=== PATIENT | male | born 1975 | race Caucasian/White ===

== ENCOUNTER 2016-06-30 09:24 | Emergency (ER) | payer SELFPAY ==
[2016-06-30 09:26] VITALS: BMI 25.0
--- NOTE | 2016-06-30 09:46 | DR.GENAD ---
HPI - PCP Primary Care Physician: NFD - HPI Comment HPI Comment: GETTING WORSE. TOOK ZANTAC WITHOUT RELIEF. HISTORY HEART BURN. PAIN RADIATES TO CHEST AND ABDOMEN. NO FEVER. - Complaint/Symptoms Chief Complaint Doctors Comments: EPIGASTRIC PAIN WITH N/V TIMES 4 DAYS. Chief Complaint:: SEVERE HEARTBURN X 4 DAYS, NO SLEEP, VOMITING - Nurses notes reviewed Nurses Notes Review: Yes - Source History Provided: Patient - Mode of Arrival Mode of Arrival: Ambulatory - Timing Onset of Chief Complaint: 06/26/16 Came on: Suddenly - Duration Duration: Constant Duration: Days - Severity Severity: Moderate PMH - PMH Past Medical History: No Past Surgical History: No Surgical History: No History - Family History History of Family Medical Conditions: Yes Family Medical History: Cancer - Social History Does patient currently use any type of tobacco product: Yes Have you used tobacco products in the last 12 months: Yes Type of Tobacco Use: Cigarettes How many years tobacco product used: 20 Does any household member use tobacco: No Alcohol Use: None Do you use any recreational Drugs:: No Lives With: Significant Other Lives Where: Home - infectious screening In the last 2 months have you had wt loss of >10#?: NO Have you had fever, night sweats or hemotysis?: No Have you traveled outside the country in the last 6 months?: No Isolation: Standard ROS - Review of Systems Constitutional: No Symptoms Reported ENTM: No Symptoms Reported Respiratoy: No Symptoms Reported Cardiovascular: Chest Pain Gastrointestinal/Abdominal: Abdominal Pain Genitourinary: No Symptoms Reported Neurological: No Symptoms Reported Musculoskeletal: No Symptoms Reported Integumentary: No Symptoms Reported Hematologic/Lymphatic: No Symptoms Reported Endocrine: No Symptoms Reported All Other Systems: Reviewed and Negative PE - Vital Signs Vitals: Temperature 98.3 F Pulse Rate 97 Respiratory Rate 24 Blood Pressure [Left Arm] 151/98 Blood Pressure 148/107 O2 Sat by Pulse Oximetry 100 - General Limitations: No Limitations General Appearance: Alert - Head Head Exam: Normal Inspection - Eyes Eye exam: Normal Appearance - ENT ENT Exam: Normal External Ear Exam External Ear Exam: Normal External Inspection TM/Canal Exam: Bilateral Normal Nose Exam: Normal Nose Exam Mouth Exam: Normal Inspection Throat Exam: Normal Inspection - Neck Neck Exam: Normal Inspection - Chest Chest Inspection: Symmetric Chest Wall Rise - Respiratory Respiratory Exam: Normal Lung Sounds Bilat Respiratory Exam: Bilateral Clear to Auscultation - Cardiovascular Cardiovascular Exam: Regular Rate, Normal Rhythm, Normal Heart Sounds - Abdominal Exam Abdominal Exam: Normal Bowel Sounds, Soft, Tenderness Abdominal Tenderness: Epigastrium - Extremities Extremities Exam: Normal Inspection - Back Back Exam: Normal Inspection - Neurologic Neurological Exam: Alert, Oriented X3 - Psychiatric Psychiatric Exam: Normal Affect, Normal Mood - Skin Skin Exam: Normal Color MDM - Additional Information Additional Information Obtained From: Family - Differential Diagnosis Differential Diagnosis: GASTRITIS, ABDOMINAL PAIN, TX, UTI Course - Treatment Treatment: SEE ORDERS - Reevaluation 1st: Improved (WITH IV PEPCID AND GI COCKTAIL.) - Education/Counseling Education/Counseling: Patient, Family, Education Educated On: Treatment, Diagnosis, Needs for Follow Up ROR - Labs Reviewed Laboratory Results Reviewed?: Yes Result Diagrams: 06/30/16 09:59 06/30/16 09:59 Laboratory: WBC 10.6 X10^3/uL (3.6-10.0) H 06/30/16 09:59 RBC 5.31 X10^6/uL (4.7-6.0) 06/30/16 09:59 Hgb 14.9 g/dL (13.5-18.0) 06/30/16 09:59 Hct 44.2 % (42.0-54.0) 06/30/16 09:59 MCV 83.3 fL (80.0-100.0) 06/30/16 09:59 MCH 28.0 pg (27.0-34.0) 06/30/16 09:59 MCHC 33.7 g/dL (33.0-35.0) 06/30/16 09:59 RDW 14.4 % (11.6-16.5) 06/30/16 09:59 Plt Count 94 X10^3/uL (150.0-450.0) L 06/30/16 09:59 MPV 10.0 fL (7.4-11.0) 06/30/16 09:59 Neut % 68.5 % (42.0-75.0) 06/30/16 09:59 Lymph % 18.9 % (21.0-51.0) L 06/30/16 09:59 [place] % 7.4 % (0.0-13.0) 06/30/16 09:59 Eos % 3.7 % (0.9-2.9) H 06/30/16 09:59 Baso % 1.5 % (0.2-1.0) H 06/30/16 09:59 Neut # 7.3 x10^3/uL (2.2-4.8) H 06/30/16 09:59 Lymph # 2.0 X10^3/uL (1.3-2.9) 06/30/16 09:59 [place] # 0.8 x10^3/uL (0.3-0.8) 06/30/16 09:59 Eos # 0.4 x10^3/uL (0.0-0.2) H 06/30/16 09:59 Baso # 0.2 X10^3/uL (0.0-0.1) H 06/30/16 09:59 Absolute Nucleated RBC 0.0 /100WBC 06/30/16 09:59 Sodium 137 mmol/L (136-145) 06/30/16 09:59 Corrected Sodium 138 mmol/L (136-145) 06/30/16 09:59 Potassium 4.0 mmol/L (3.5-5.1) 06/30/16 09:59 Chloride 101 mmol/L (98-107) 06/30/16 09:59 Carbon Dioxide 28.4 mmol/L (21-32) 06/30/16 09:59 BUN 8 mg/dL (7-18) 06/30/16 09:59 Creatinine 0.89 mg/dL (0.70-1.30) 06/30/16 09:59 Est GFR (MDRD) Af Amer > 60 (>60) 06/30/16 09:59 Est GFR (MDRD) Non-Af > 60 (>60) 06/30/16 09:59 Glucose 127 mg/dL (65-99) H 06/30/16 09:59 Calcium 8.6 mg/dL (8.5-10.1) 06/30/16 09:59 Corrected Calcium 9.2 mg/dL (8.5-10.1) 06/30/16 09:59 Total Bilirubin 0.20 mg/dL (0.2-1.0) 06/30/16 09:59 AST 150 Units/L (15-37) H 06/30/16 09:59 ALT 391 Units/L (12-78) H 06/30/16 09:59 Alkaline Phosphatase 178 Units/L (46-116) H 06/30/16 09:59 Creatine Kinase 79 Units/L (39-308) 06/30/16 09:59 CK-MB (CK-2) 1.1 ng/mL (0-4.0) 06/30/16 09:59 CK/CKMB % Calc 1.4 % (<4) 06/30/16 09:59 Troponin I < 0.02 ng/mL (0-1.5) 06/30/16 09:59 Total Protein 6.6 g/dL (6.4-8.2) 06/30/16 09:59 Albumin 3.2 g/dL (3.4-5.0) L 06/30/16 09:59 Globulin 3.4 g/dL (2.5-4.5) 06/30/16 09:59 Albumin/Globulin Ratio 0.9 Ratio (1.1-2.1) L 06/30/16 09:59 Amylase 37 Units/L (25-115) 06/30/16 09:59 Lipase 159 Units/L (73-393) 06/30/16 09:59 Specimen Type Clean catch urine 06/30/16 11:10 Urine Color Yellow (YELLOW) 06/30/16 11:10 Urine Appearance Clear (CLEAR) 06/30/16 11:10 Urine pH 7.0 (5.0 - 8.0) 06/30/16 11:10 Ur Specific [place] 1.005 (1.000-1.030) 06/30/16 11:10 Urine Protein Negative (NEGATIVE) 06/30/16 11:10 Urine Glucose (UA) Negative (NEGATIVE) 06/30/16 11:10 Urine Ketones Negative (NEGATIVE) 06/30/16 11:10 Urine Occult Blood Negative (NEGATIVE) 06/30/16 11:10 Urine Nitrite Negative (NEGATIVE) 06/30/16 11:10 Urine Bilirubin Negative (NEGATIVE) 06/30/16 11:10 Urine Urobilinogen Normal (NORMAL) 06/30/16 11:10 Ur Leukocyte Esterase 1+ (NEGATIVE) 06/30/16 11:10 Urine RBC 0-2 /HPF (NEGATIVE) 06/30/16 11:10 Urine WBC 0-5 /HPF (NEGATIVE) 06/30/16 11:10 Ur Squamous Epith Cells Negative /HPF (NEGATIVE) 06/30/16 11:10 Urine Bacteria Negative /HPF (NEGATIVE) 06/30/16 11:10 Ur Culture Indicated? No/not indicated 06/30/16 11:10 H. pylori IgG Antibody Positive (NEGATIVE) A 06/30/16 09:59 - XRAY XRAY Interpreted by: Radiologist XRAY Findings: REPORT DISCUSS WITH PATIENT. - EKG Rhythm: NSR (EKG NOTED) - Diagnosis Discharge Problem: Epigastric pain, Helicobacter pylori ab+ - Discharge Plan Disposition: HOME, SELF-CARE Condition: Stable Prescriptions: Pantoprazole Sodium 40 mg [Protonix Tab 40 mg] 40 mg PO DAILY #30 tab - Follow ups/Referrals Follow ups/Referrals: NFD,None [Primary Care Provider] - 2 days MAC NARAYAN [STAFF PHYSICIAN] - 2 days - Instructions Instructions: Gastritis, Adult, [id number], Helicobacter Pylori Antibodies Test, Abdominal Pain, Adult, [id number] Additional Instructions: RETURN TO ED IF WORSE. PRIMARY CARE DOCTOR TO TREAT POSITIVE H PYLORI.
[2016-06-30] MEDS ORDERED: PEPCID 20 MG IV PREMIX* 20 MG/50 ML BAG IV ONE ×2 (09:47→09:52)
[2016-06-30] MEDS ORDERED: LEVSIN/MAALOX/LIDOC VISC PO ONE (09:47)
[2016-06-30] MEDS ORDERED: LEVSIN/MAALOX/LIDOC VISC ONE (09:52)
[2016-06-30 10:07] LABS: BASOPHILS # (AUTO) 0.2 X10^3/uL (0.0-0.1); BASOPHILS % (AUTO) 1.5 % (0.2-1.0); EOSINOPHILS # (AUTO) 0.4 x10^3/uL (0.0-0.2); EOSINOPHILS % (AUTO) 3.7 % (0.9-2.9); HEMATOCRIT 44.2 % (42.0-54.0); HEMOGLOBIN 14.9 g/dL (13.5-18.0); LYMPHOCYTES % (AUTO) 18.9 % (21.0-51.0); MEAN CORPUSCULAR HGB CONC 33.7 g/dL (33.0-35.0); MEAN CORPUSCULAR VOLUME 83.3 fL (80.0-100.0); MONOCYTES # (AUTO) 0.8 x10^3/uL (0.3-0.8); MONOCYTES % (AUTO) 7.4 % (0.0-13.0); NEUTROPHILS # (AUTO) 7.3 x10^3/uL (2.2-4.8); NEUTROPHILS % (AUTO) 68.5 % (42.0-75.0); PLATELET COUNT 94 X10^3/uL (150.0-450.0); RED BLOOD COUNT 5.31 X10^6/uL (4.7-6.0); RED CELL DISTRIBUTION WIDTH 14.4 % (11.6-16.5); WHITE BLOOD COUNT 10.6 X10^3/uL (3.6-10.0)
[2016-06-30 10:24] LABS: BLOOD UREA NITROGEN 8 mg/dL (7-18); CALCIUM 8.6 mg/dL (8.5-10.1); CARBON DIOXIDE 28.4 mmol/L (21-32); CHLORIDE 101 mmol/L (98-107); COR NA(FOR HYPERGLY) 138 mmol/L (136-145); CREATININE 0.89 mg/dL (0.70-1.30); GLUCOSE 127 mg/dL (65-99); SODIUM 137 mmol/L (136-145); TROPONIN I < 0.02 ng/mL (0-1.5); eGFR BLACK RACES > 60 (>60); eGFR NON BLACK RACES > 60 (>60)
[2016-06-30 10:29] LABS: ALANINE AMINOTRANSFERASE 391 Units/L (12-78); ALBUMIN 3.2 g/dL (3.4-5.0); ALKALINE PHOSPHATASE 178 Units/L (46-116); ASPARTATE AMINO TRANSFERASE 150 Units/L (15-37); CKMB % 1.4 % (<4); COR CA(FOR HYPOALB) 9.2 mg/dL (8.5-10.1); CREATINE KINASE 79 Units/L (39-308); CREATINE KINASE MB 1.1 ng/mL (0-4.0); TOTAL PROTEIN 6.6 g/dL (6.4-8.2)
[2016-06-30 10:39] LABS: AMYLASE 37 Units/L (25-115); LIPASE 159 Units/L (73-393)
[2016-06-30 11:23] LABS: BILIRUBIN,URINE NEGATIVE (NEGATIVE); BLOOD/HEMOGLOBIN,URINE NEGATIVE (NEGATIVE); GLUCOSE, URINE NEGATIVE (NEGATIVE); KETONES,URINE NEGATIVE (NEGATIVE); LEUKOCYTE ESTERASE ,URINE 1+ (NEGATIVE); NITRITES,URINE NEGATIVE (NEGATIVE); PROTEIN,URINE NEGATIVE (NEGATIVE); UROBILINOGEN,URINE NORMAL (NORMAL)
[2016-06-30 11:29] LABS: APPEARANCE,URINE CLEAR (CLEAR); COLOR,URINE YELLOW (YELLOW); RBC,URINE 0-2 /HPF (NEGATIVE); SQUAMOUS EPITHELIAL CELL,UR NEGATIVE /HPF (NEGATIVE)
[2016-06-30 11:30] LABS: BACTERIA,URINE NEGATIVE /HPF (NEGATIVE)
--- NOTE | 2016-06-30 11:57 | RAD ---
HISTORY: Chest and abdominal pain. Acute abdominal series. Findings: The trachea is midline. The cardiac silhouette is unremarkable. The lungs are clear without focal infiltrate or effusion. The bony thorax is unremarkable. Flat plate and upright evaluation of the abdomen demonstrates a nonspecific and nonobstructive bowel gas pattern. No free peritoneal air is seen. No pathological soft tissue abdominal mass effect or f ocal calcification can be observed. The bony structures are grossly intact. IMPRESSION: 1. No acute cardiopulmonary disease. 2. No evidence for acute abdominal pathology. 3. Large quantity of colonic stool observed. Reported By:
[2016-06-30 22:09] VITALS: BP 134/93
[2016-06-30] MEDS ORDERED: ZOFRAN INJ 4 MG VIAL IVP ONE (23:14)
[2016-06-30] MEDS ORDERED: DEMEROL INJ IVP ONE (23:14)
[2016-06-30] MEDS ORDERED: ZOFRAN INJ 4 MG VIAL ONE (23:19)
[2016-06-30] MEDS ORDERED: DEMEROL INJ ONE (23:20)
[2016-07-01] MEDS ORDERED: NS 100 ML IV 100 ML IV ONE (00:30)
--- NOTE | 2016-07-01 01:41 | CT ---
EXAM: CT ABDOMEN AND PELVIS WITH CONTRAST INDICATION: Severe heartburn, abdominal pain COMPARISION: No priors available for comparison TECHNIQUE: Axial CT examination of the abdomen and pelvis was performed with intravenous contrast. The patient received intravenous contrast without adverse reaction. Coronal and sagittal reconstructions were c reated using the axial data. FINDINGS: The lung bases are clear. The liver, spleen, pancreas, adrenal glands, kidneys, and gallbladder are normal. There is no evidence of biliary ductal dilatation. The aorta and inferior vena cava are norm al in caliber. The bowel loops are nonobstructed. No abnormal mass, lymphadenopathy, or fluid collection. Urinary bladder is normal. The appendix is normal. The regional skeleton is intact. IMPRESSION: Normal CT examination of the abdomen and pelvis. Reported By:
== END 2016-07-01 02:14 | disposition home or self-care (01) ==
LOC: ER 09:24
DX: R10.13 Epigastric pain (principal); B96.81 Helicobacter pylori [H. pylori] as the cause of diseases classified elsewhere
CPT/HCPCS: 36415; 74022; 74177; 80053; 81001; 82150; 82550; 82553; 83690; 84484; 85025; 86677; 93005; 93010; 96365; 96367; 96374; 96375; 99283; 99284; A4222; S0028; J2175; J2405

== ENCOUNTER 2016-09-01 05:03 | Emergency (ER) | payer SELFPAY ==
[2016-09-01 05:09] VITALS: BP 135/81; BMI 26.4
--- NOTE | 2016-09-01 05:18 | DR.GENAD ---
HPI - PCP Primary Care Physician: craft - Complaint/Symptoms Chief Complaint:: vomiting since 0100 pt states" they said i had H-pylori last month i don't thinks its gone" - Nurses notes reviewed Nurses Notes Review: Yes - Source History Provided: Patient - Mode of Arrival Mode of Arrival: Ambulatory - Timing Onset of Chief Complaint: 09/01/16 Came on: Gradually - Duration Duration: Intermittent How lon Duration: Hours - Location Location: stomach - Severity Severity: Mild - Modifying Factors Worsens:: food - Associated Signs and Symptoms Associated Signs and Symptoms: heartburn PMH - PMH Past Medical History: No Past Surgical History: No Surgical History: No History - Family History History of Family Medical Conditions: Yes Family Medical History: Cancer - Social History Alcohol Use: None Do you use any recreational Drugs:: No Lives With: Family Lives Where: Home - infectious screening In the last 2 months have you had wt loss of >10#?: NO Have you had fever, night sweats or hemotysis?: No Have you traveled outside the country in the last 6 months?: No Isolation: Standard ROS - Review of Systems Constitutional: No Symptoms Reported Eyes: No Symptoms Reported ENTM: No Symptoms Reported Respiratoy: No Symptoms Reported Cardiovascular: No Symptoms Reported Gastrointestinal/Abdominal: Nausea, Vomiting Genitourinary: No Symptoms Reported Neurological: No Symptoms Reported Musculoskeletal: No Symptoms Reported Integumentary: No Symptoms Reported Hematologic/Lymphatic: No Symptoms Reported Endocrine: No Symptoms Reported Psychiatric: No Symptoms Reported All Other Systems: Reviewed and Negative PE - Vital Signs Vitals: Temperature 98.6 F Pulse Rate 88 Respiratory Rate 18 Blood Pressure [Left Arm] 151/98 Blood Pressure 135/81 O2 Sat by Pulse Oximetry 97 - General Limitations: No Limitations General Appearance: Alert, In No Apparent Distress - Head Head Exam: Normal Inspection - Eyes Eye exam: Normal Appearance, EOMI. negative: Scleral Icterus, Conjunctival Injection - ENT ENT Exam: Normal Exam External Ear Exam: Normal External Inspection Mouth Exam: Normal Inspection - Neck Neck Exam: Normal Inspection, Full ROM, Trachea Midline - Chest Chest Inspection: Normal Inspection - Respiratory Respiratory Exam: Normal Lung Sounds Bilat. negative: Accessory Muscle Use, Respiratory Distress Respiratory Exam: Bilateral Clear to Auscultation - Cardiovascular Cardiovascular Exam: Regular Rate - Abdominal Exam Abdominal Exam: Normal Bowel Sounds, Soft. negative: Distention, Tenderness, Guarding Abdominal Tenderness: Epigastrium - Extremities Extremities Exam: Normal Inspection, Full ROM - Back Back Exam: Normal Inspection, Full ROM - Neurologic Neurological Exam: Alert, Oriented X3, CN II-XII Intact - Psychiatric Psychiatric Exam: Normal Affect, Normal Mood - Skin Skin Exam: Intact, Normal Color Course - Treatment Treatment: no vomiting after zofran. - Diagnosis Discharge Problem: Vomiting Qualifiers: Vomiting type: unspecified Vomiting Intractability: non-intractable Nausea presence: with nausea Qualified Code(s): R11.2 - Nausea with vomiting, unspecified - Discharge Plan Condition: Stable - Follow ups/Referrals Follow ups/Referrals: NFD,None [Primary Care Provider] - 3 days - Instructions
[2016-09-01] MEDS ORDERED: ZOFRAN INJ 4 MG VIAL IM ONE (05:21)
[2016-09-01] MEDS ORDERED: ZOFRAN INJ 4 MG VIAL ONE (05:23)
[2016-09-01] MEDS ORDERED: LEVSIN/MAALOX/LIDOC VISC PO ONE (05:24)
[2016-09-01] MEDS ORDERED: LEVSIN/MAALOX/LIDOC VISC ONE (05:26)
== END 2016-09-01 06:50 | disposition home or self-care (01) ==
LOC: ER 05:03
DX: R11.2 Nausea with vomiting, unspecified (principal)
CPT/HCPCS: 96372; 99282; J2405

== ENCOUNTER 2016-10-25 15:21 | Emergency (ER) | payer SELFPAY ==
[2016-10-25 15:26] VITALS: BP 122/81; BMI 25.0
--- NOTE | 2016-10-25 15:48 | DR.GENAD ---
HPI - PCP Primary Care Physician: NFD - Complaint/Symptoms Chief Complaint Doctors Comments: patient denies any trauma Chief Complaint:: PATIENT C/O FOOT RIGHT SWOLLEN AND RED. PATIENT STATED THAT THIS HAS BEEN GOING ON SINCE YESTERDAY. - Source History Provided: Patient - Mode of Arrival Mode of Arrival: Ambulatory - Timing Onset of Chief Complaint: 10/23/16 PMH - PMH Past Medical History: No Past Surgical History: No Surgical History: No History - Family History History of Family Medical Conditions: Yes Family Medical History: Cancer - Social History Does patient currently use any type of tobacco product: Yes Have you used tobacco products in the last 12 months: Yes Type of Tobacco Use: Cigarettes Does any household member use tobacco: No Alcohol Use: None Do you use any recreational Drugs:: No Lives With: Family Lives Where: Home - infectious screening In the last 2 months have you had wt loss of >10#?: NO Have you had fever, night sweats or hemotysis?: No Have you traveled outside the country in the last 6 months?: No Isolation: Standard ROS - Review of Systems Eyes: No Symptoms Reported ENTM: No Symptoms Reported Respiratoy: No Symptoms Reported Cardiovascular: No Symptoms Reported Gastrointestinal/Abdominal: No Symptoms Reported Genitourinary: No Symptoms Reported Neurological: No Symptoms Reported Musculoskeletal: No Symptoms Reported Integumentary: Change in Color, Lesions (punctum dorsum of foot, area of erythema) Hematologic/Lymphatic: No Symptoms Reported Endocrine: No Symptoms Reported Psychiatric: No Symptoms Reported All Other Systems: Reviewed and Negative PE - Vital Signs Vitals: Temperature 98.1 F Pulse Rate 83 Respiratory Rate 20 Blood Pressure [Left Arm] 151/98 Blood Pressure 122/81 O2 Sat by Pulse Oximetry 97 - General General Appearance: Alert, In No Apparent Distress - Head Head Exam: Normal Inspection, Atraumatic - Eyes Eye exam: Normal Appearance - ENT ENT Exam: Normal Exam External Ear Exam: Normal External Inspection TM/Canal Exam: Bilateral Normal Nose Exam: Normal Nose Exam Mouth Exam: Normal Inspection Throat Exam: Normal Inspection - Neck Neck Exam: Normal Inspection - Chest Chest Inspection: Normal Inspection - Respiratory Respiratory Exam: Normal Lung Sounds Bilat Respiratory Exam: Bilateral Clear to Auscultation - Cardiovascular Cardiovascular Exam: Regular Rate, Normal Rhythm - Abdominal Exam Abdominal Exam: Normal Inspection - Extremities Extremities Exam: Normal Inspection, Full ROM - Back Back Exam: Normal Inspection - Neurologic Neurological Exam: Alert, Oriented X3, CN II-XII Intact - Psychiatric Psychiatric Exam: Normal Affect, Normal Mood - Skin Skin Exam: Warm, Dry, Erythema (Punctums x 2 on dorsum of toes) Course - Treatment Treatment: clindamycin 600mg IN - Reevaluation 1st: Improved ROR - Labs Reviewed Result Diagrams: 10/25/16 15:57 10/25/16 15:57 Laboratory: WBC 11.7 X10^3/uL (3.6-10.0) H 10/25/16 15:57 RBC 5.05 X10^6/uL (4.7-6.0) 10/25/16 15:57 Hgb 14.0 g/dL (13.5-18.0) 10/25/16 15:57 Hct 42.0 % (42.0-54.0) 10/25/16 15:57 MCV 83.2 fL (80.0-100.0) 10/25/16 15:57 MCH 27.8 pg (27.0-34.0) 10/25/16 15:57 MCHC 33.4 g/dL (33.0-35.0) 10/25/16 15:57 RDW 14.7 % (11.6-16.5) 10/25/16 15:57 Plt Count 120 X10^3/uL (150.0-450.0) L 10/25/16 15:57 MPV 10.1 fL (7.4-11.0) 10/25/16 15:57 Neut % 78.4 % (42.0-75.0) H 10/25/16 15:57 Lymph % 11.0 % (21.0-51.0) L 10/25/16 15:57 [place] % 8.9 % (0.0-13.0) 10/25/16 15:57 Eos % 1.1 % (0.9-2.9) 10/25/16 15:57 Baso % 0.6 % (0.2-1.0) 10/25/16 15:57 Neut # 9.2 x10^3/uL (2.2-4.8) H 10/25/16 15:57 Lymph # 1.3 X10^3/uL (1.3-2.9) 10/25/16 15:57 [place] # 1.0 x10^3/uL (0.3-0.8) H 10/25/16 15:57 Eos # 0.1 x10^3/uL (0.0-0.2) 10/25/16 15:57 Baso # 0.1 X10^3/uL (0.0-0.1) 10/25/16 15:57 Absolute Nucleated RBC 0.0 /100WBC 10/25/16 15:57 Sodium 138 mmol/L (136-145) 10/25/16 15:57 Corrected Sodium TNP 10/25/16 15:57 Potassium 3.4 mmol/L (3.5-5.1) L 10/25/16 15:57 Chloride 104 mmol/L (98-107) 10/25/16 15:57 Carbon Dioxide 25.4 mmol/L (21-32) 10/25/16 15:57 BUN 16 mg/dL (7-18) 10/25/16 15:57 Creatinine 0.84 mg/dL (0.70-1.30) 10/25/16 15:57 Est GFR (MDRD) Af Amer > 60 (>60) 10/25/16 15:57 Est GFR (MDRD) Non-Af > 60 (>60) 10/25/16 15:57 Glucose 102 mg/dL (65-99) H 10/25/16 15:57 Calcium 8.1 mg/dL (8.5-10.1) L 10/25/16 15:57 C-Reactive Protein 38.60 mg/L (0-3.0) H 10/25/16 15:57 - Diagnosis Discharge Problem: Cellulitis and abscess of foot - Discharge Plan Condition: Stable - Follow ups/Referrals Follow ups/Referrals: NFD,None [Primary Care Provider] - 3 days - Instructions
[2016-10-25] MEDS ORDERED: CLEOCIN 600 MG IV PREMIX 600 MG/50 ML BAG IV ONE (15:51)
[2016-10-25] MEDS ORDERED: TORADOL 30 MG VIAL IVP ONE (15:52)
[2016-10-25] MEDS ORDERED: TORADOL 30 MG VIAL ONE (15:53)
[2016-10-25] MEDS ORDERED: NS 250 ML IV 250 ML IV ONE (16:04)
[2016-10-25] MEDS ORDERED: CLEOCIN VIAL 600 MG ONE (16:04)
[2016-10-25 16:19] LABS: BASOPHILS # (AUTO) 0.1 X10^3/uL (0.0-0.1); BASOPHILS % (AUTO) 0.6 % (0.2-1.0); EOSINOPHILS # (AUTO) 0.1 x10^3/uL (0.0-0.2); EOSINOPHILS % (AUTO) 1.1 % (0.9-2.9); LYMPHOCYTES # (AUTO) 1.3 X10^3/uL (1.3-2.9); MEAN CORPUSCULAR HEMOGLOBIN 27.8 pg (27.0-34.0); MEAN CORPUSCULAR HGB CONC 33.4 g/dL (33.0-35.0); MEAN CORPUSCULAR VOLUME 83.2 fL (80.0-100.0); MEAN PLATELET VOLUME 10.1 fL (7.4-11.0); MONOCYTES % (AUTO) 8.9 % (0.0-13.0); NEUTROPHILS # (AUTO) 9.2 x10^3/uL (2.2-4.8); NEUTROPHILS % (AUTO) 78.4 % (42.0-75.0); PLATELET COUNT 120 X10^3/uL (150.0-450.0); RED BLOOD COUNT 5.05 X10^6/uL (4.7-6.0); RED CELL DISTRIBUTION WIDTH 14.7 % (11.6-16.5); WHITE BLOOD COUNT 11.7 X10^3/uL (3.6-10.0)
[2016-10-25 16:22] LABS: BLOOD UREA NITROGEN 16 mg/dL (7-18); CALCIUM 8.1 mg/dL (8.5-10.1); CARBON DIOXIDE 25.4 mmol/L (21-32); CHLORIDE 104 mmol/L (98-107); CREATININE 0.84 mg/dL (0.70-1.30); GLUCOSE 102 mg/dL (65-99); SODIUM 138 mmol/L (136-145); eGFR BLACK RACES > 60 (>60); eGFR NON BLACK RACES > 60 (>60)
[2016-10-25] MEDS ORDERED: POTASSIUM CHLORIDE LIQ 20 MEQ UDC ONE (16:52)
[2016-10-25] MEDS ORDERED: POTASSIUM CHLORIDE LIQ 20 MEQ UDC PO SCH (17:00)
== END 2016-10-25 17:02 | disposition home or self-care (01) ==
LOC: ER 15:36
DX: L03.115 Cellulitis of right lower limb (principal)
CPT/HCPCS: 36415; 80048; 85025; 86140; 87040; 96365; 96374; 96375; 99282; 99283; A4222; J1885; S0077

== ENCOUNTER 2016-10-27 10:53 | Inpatient (IN) | payer SELFPAY ==
[2016-10-27 10:58] VITALS: BMI 25.0
--- NOTE | 2016-10-27 11:25 | DR.EXTPAIN ---
HPI - Time seen Time seen: 11:25 - PCP Primary Care Physician: NFD - Complaint/Symptoms Chief Complaint Doctor Comments: Patient was treated for cellulitis of the right foot on the , medicated with Bactrim DS po as out patient; given IV clindymycin in the ED; he presents today with more swelling and erythema of the dorsum of the foot. The culture is no growth to date. Patient additionally reports that he had taken some antibiotics (for tooth abscess) prior to being seen in the ED. Chief Complaint:: PT. C/O RIGHT FOOT PAIN, SWELLING, REDNESS WHICH BEGAN ON TUESDAY. PT. WAS SEEN IN THE ER ON TUESDAY AND WAS GIVEN IV ANTIBITOICS AND ORAL ANTIBIOTICS TO TAKE AT HOME. - Source History Provided: Patient - Mode of arrival Mode of Arrival: Ambulatory - Timing Onset of Chief Complaint: 10/25/16 PMH - PMH Past Medical History: No Past Surgical History: No Surgical History: No History - Family History History of Family Medical Conditions: Yes Family Medical History: Cancer - Social History Does patient currently use any type of tobacco product: Yes Have you used tobacco products in the last 12 months: Yes Type of Tobacco Use: Cigarettes Does any household member use tobacco: No Alcohol Use: None Do you use any recreational Drugs:: No Lives With: Spouse Lives Where: Home - infectious screening In the last 2 months have you had wt loss of >10#?: NO Have you had fever, night sweats or hemotysis?: No Have you traveled outside the country in the last 6 months?: No Isolation: Standard ROS - Review of Systems Eyes: No Symptoms Reported ENTM: No Symptoms Reported Respiratoy: No Symptoms Reported Cardiovascular: No Symptoms Reported Gastrointestinal/Abdominal: No Symptoms Reported Genitourinary: No Symptoms Reported Neurological: No Symptoms Reported Musculoskeletal: Foot (right foot edematous and erythematous dorsum of foot) PE - Vital Signs Vitals: Temperature 98.1 F Pulse Rate 96 Respiratory Rate 20 Blood Pressure [Left Arm] 151/98 Blood Pressure 166/84 O2 Sat by Pulse Oximetry 98 - General General Appearance: Alert, In No Apparent Distress - Head Head Exam: Normal Inspection, Atraumatic - Eyes Eye exam: Normal Appearance, PERRL, EOMI - ENT ENT Exam: Normal Exam - Neck Neck Exam: Normal Inspection, Full ROM - Chest Chest Inspection: Normal Inspection - Respiratory Respiratory Exam: Normal Lung Sounds Bilat Respiratory Exam: Bilateral Clear to Auscultation - Cardiovascular Cardiovascular Exam: Regular Rate - Abdominal Exam Abdominal Exam: Normal Inspection Abdominal Tenderness: negative: RUQ, RLQ, LUQ, LLQ, Epigastrium, Suprapubic, Diffuse, Mild, Moderate, Severe, Other - Extremities Extremities Exam: Tenderness (left foot), Edema, Joint Swelling, Other ( erythematous) - Upper Extremities Shoulder Exam: Normal Inspection Arm Exam: Normal Inspection Elbow Exam: Normal Inspection Forearm Exam: Normal Inspection Hand Exam: Normal Inspection Neuromotor Exam: Normal Exam Neurosensory Exam: Normal Exam Hand Tendon Exam: Flexor Digitorium Profundus (Location) Upper Ext. Vascular Exam: Capillary Refill - Lower Extremities Hip/Pelvis Exam: Normal Inspection Upper Leg Exam: Normal Inspection Knee Exam: Normal Inspection Lower Leg Exam: Normal Inspection Ankle Exam: Normal Inspection, Swelling Foot/Toe Exam: Tenderness, Swelling, Erythema (right dorsum of foot) Neurovascular/Tendon Exam: Normal Capillary Refill Gait Exam: Antalgic - Back Back Exam: Muscle Spasm - Neurological Neurological Exam: Alert, Oriented X3, CN II-XII Intact Course - Reevaluation 1st: Unchanged - Consultation Called: 12:40 (Dr Mehta agreed to accept for treatment of osteomyelitis) ROR - Labs Reviewed Result Diagrams: 10/27/16 11:30 10/27/16 11:30 Laboratory: WBC 12.7 X10^3/uL (3.6-10.0) H 10/27/16 11:30 RBC 4.81 X10^6/uL (4.7-6.0) 10/27/16 11:30 Hgb 13.4 g/dL (13.5-18.0) L 10/27/16 11:30 Hct 39.7 % (42.0-54.0) L 10/27/16 11:30 MCV 82.5 fL (80.0-100.0) 10/27/16 11:30 MCH 27.8 pg (27.0-34.0) 10/27/16 11:30 MCHC 33.7 g/dL (33.0-35.0) 10/27/16 11:30 RDW 14.5 % (11.6-16.5) 10/27/16 11:30 Plt Count 132 X10^3/uL (150.0-450.0) L 10/27/16 11:30 MPV 9.9 fL (7.4-11.0) 10/27/16 11:30 Neut % 75.9 % (42.0-75.0) H 10/27/16 11:30 Lymph % 14.9 % (21.0-51.0) L 10/27/16 11:30 [place] % 7.1 % (0.0-13.0) 10/27/16 11:30 Eos % 1.2 % (0.9-2.9) 10/27/16 11:30 Baso % 0.9 % (0.2-1.0) 10/27/16 11:30 Neut # 9.6 x10^3/uL (2.2-4.8) H 10/27/16 11:30 Lymph # 1.9 X10^3/uL (1.3-2.9) 10/27/16 11:30 [place] # 0.9 x10^3/uL (0.3-0.8) H 10/27/16 11:30 Eos # 0.2 x10^3/uL (0.0-0.2) 10/27/16 11:30 Baso # 0.1 X10^3/uL (0.0-0.1) 10/27/16 11:30 Absolute Nucleated RBC 0.0 /100WBC 10/27/16 11:30 Sodium 136 mmol/L (136-145) 10/27/16 11:30 Corrected Sodium TNP 10/27/16 11:30 Potassium 3.3 mmol/L (3.5-5.1) L 10/27/16 11:30 Chloride 100 mmol/L (98-107) 10/27/16 11:30 Carbon Dioxide 28.4 mmol/L (21-32) 10/27/16 11:30 BUN 14 mg/dL (7-18) 10/27/16 11:30 Creatinine 1.02 mg/dL (0.70-1.30) 10/27/16 11:30 Est GFR (MDRD) Af Amer > 60 (>60) 10/27/16 11:30 Est GFR (MDRD) Non-Af > 60 (>60) 10/27/16 11:30 Glucose 104 mg/dL (65-99) H 10/27/16 11:30 Calcium 8.8 mg/dL (8.5-10.1) 10/27/16 11:30 Corrected Calcium TNP 10/27/16 11:30 Total Bilirubin 0.40 mg/dL (0.2-1.0) 10/27/16 11:30 AST 15 Units/L (15-37) 10/27/16 11:30 ALT 22 Units/L (12-78) 10/27/16 11:30 Alkaline Phosphatase 102 Units/L (46-116) 10/27/16 11:30 C-Reactive Protein 34.20 mg/L (0-3.0) H 10/27/16 11:30 Total Protein 7.1 g/dL (6.4-8.2) 10/27/16 11:30 Albumin 3.4 g/dL (3.4-5.0) 10/27/16 11:30 Globulin 3.7 g/dL (2.5-4.5) 10/27/16 11:30 Albumin/Globulin Ratio 0.9 Ratio (1.1-2.1) L 10/27/16 11:30 - XRAY XRAY Interpreted by: Radiologist (Right foot: Diffuse subcutaneous and cutaneous soft tissue swelling consistent with cellulitis...no evidence for [id number] or subcutaneous gas. No definite bony abnormality. There are no findings suggestive of osteomyelitis howerer non contrast CT is not adequate evaluation for osteomyelitis however MRI of foot with and without contrast would be required for further evaluation) - Diagnosis Discharge Problem: Foot osteomyelitis, right Qualifiers: Osteomyelitis type: subacute Qualified Code(s): M86.271 - Subacute osteomyelitis, right ankle and foot - Discharge Plan Condition: Stable - Follow ups/Referrals Follow ups/Referrals: NFD,None [Primary Care Provider] - 3 days - Instructions
[2016-10-27] MEDS ORDERED: MORPHINE SULFATE INJ 4 MG IVP ONE (11:30)
[2016-10-27] MEDS ORDERED: MORPHINE SULFATE INJ 4 MG ONE (11:32)
[2016-10-27 11:47] LABS: BASOPHILS # (AUTO) 0.1 X10^3/uL (0.0-0.1); BASOPHILS % (AUTO) 0.9 % (0.2-1.0); EOSINOPHILS # (AUTO) 0.2 x10^3/uL (0.0-0.2); EOSINOPHILS % (AUTO) 1.2 % (0.9-2.9); HEMATOCRIT 39.7 % (42.0-54.0); HEMOGLOBIN 13.4 g/dL (13.5-18.0); LYMPHOCYTES # (AUTO) 1.9 X10^3/uL (1.3-2.9); LYMPHOCYTES % (AUTO) 14.9 % (21.0-51.0); MEAN CORPUSCULAR HEMOGLOBIN 27.8 pg (27.0-34.0); MEAN CORPUSCULAR HGB CONC 33.7 g/dL (33.0-35.0); MEAN CORPUSCULAR VOLUME 82.5 fL (80.0-100.0); MEAN PLATELET VOLUME 9.9 fL (7.4-11.0); MONOCYTES # (AUTO) 0.9 x10^3/uL (0.3-0.8); MONOCYTES % (AUTO) 7.1 % (0.0-13.0); NEUTROPHILS # (AUTO) 9.6 x10^3/uL (2.2-4.8); NEUTROPHILS % (AUTO) 75.9 % (42.0-75.0); PLATELET COUNT 132 X10^3/uL (150.0-450.0); RED BLOOD COUNT 4.81 X10^6/uL (4.7-6.0); RED CELL DISTRIBUTION WIDTH 14.5 % (11.6-16.5); WHITE BLOOD COUNT 12.7 X10^3/uL (3.6-10.0)
[2016-10-27 11:53] LABS: ALANINE AMINOTRANSFERASE 22 Units/L (12-78); ALBUMIN 3.4 g/dL (3.4-5.0); ALKALINE PHOSPHATASE 102 Units/L (46-116); ASPARTATE AMINO TRANSFERASE 15 Units/L (15-37); BLOOD UREA NITROGEN 14 mg/dL (7-18); CALCIUM 8.8 mg/dL (8.5-10.1); CARBON DIOXIDE 28.4 mmol/L (21-32); CHLORIDE 100 mmol/L (98-107); CREATININE 1.02 mg/dL (0.70-1.30); GLUCOSE 104 mg/dL (65-99); SODIUM 136 mmol/L (136-145); TOTAL PROTEIN 7.1 g/dL (6.4-8.2); eGFR BLACK RACES > 60 (>60); eGFR NON BLACK RACES > 60 (>60)
[2016-10-27] MEDS ORDERED: POTASSIUM CHLORIDE LIQ 20 MEQ UDC PO ONE (12:13)
[2016-10-27] MEDS ORDERED: POTASSIUM CHLORIDE LIQ 20 MEQ UDC ONE (12:16)
--- NOTE | 2016-10-27 12:43 | CT ---
HISTORY: Cellulitis right foot Study: CT right foot without contrast Comparison: None Technique: Axial non contrast images with coronal and sagittal reformats. Dose reduction procedures were use with MA/kv adjusted for body size. This examination is limited due to the lack of intraveno us contrast. Findings: There is diffuse subcutaneous and subcutaneous edema involving the area of the ankle and foot. There are no discrete visible drainable fluid collections however evaluation for abscess is limited due t o the lack of intravenous contrast. The distal tibia, distal fibula, and tibiotalar joints are intac t as are the talus, calcaneus, and subtalar joints. There is no evidence for fracture, lytic, or dorothy stic lesion. No erosive arthritis is identified. There is no abnormal periosteal reaction or soft ti ssue gas identified. Non contrast CT is not an adequate evaluation for osteomyelitis. If osteomyelit is is a clinical consideration MRI of the foot with and without contrast would be required. IMPRESSION: Diffuse subcutaneous and cutaneous soft tissue swelling consistent with cellulitis. The lack of intr avenous contrast limits the evaluation for subcutaneous abscess. No evidence for cutaneous or subcutaneous gas No definite bony abnormality. There are no findings suggestive of osteomyelitis however non contrast CT is not adequate evaluation for osteomyelitis and if osteomyelitis is a strong clinical considera tion MRI of the foot with and without contrast would be required for further evaluation. Reported By:
[2016-10-27] MEDS ORDERED: MOTRIN TAB 600 MG PO PRN (13:33)
[2016-10-27] MEDS ORDERED: TORADOL 30 MG VIAL IVP ONE (13:37)
[2016-10-27] MEDS ORDERED: NS 1000 ML 1,000 ML ONE (13:54)
[2016-10-27] MEDS ORDERED: VANCOMYCIN HCL 500 MG VIAL ONE (13:55)
[2016-10-27] MEDS ORDERED: NS 100 ML IV + SPIKE MINIBAG* 100 ML IV ONE (13:55)
[2016-10-27] MEDS ORDERED: TORADOL 30 MG VIAL ONE (13:58)
[2016-10-27] MEDS ORDERED: D5 NS 1000 ML 1,000 ML IV SCH (14:00)
[2016-10-27] MEDS: VANCOMYCIN HCL 500 MG VIAL 500 MG in D5W 100 ML IV 100 ML IV SCH ×2 (14:01→21:08)
[2016-10-27] MEDS: NS 1000 ML 1,000 ML IV SCH ×2 (14:04→22:21)
[2016-10-27] MEDS ORDERED: PREVNAR 13 IM ONE (14:26)
[2016-10-27] MEDS: NICODERM PATCH 21 MG/24 HR TD SCH (16:43)
[2016-10-27] MEDS: NORCO 5/325 MG TAB PO PRN ×2 (16:44→22:20)
[2016-10-27] MEDS ORDERED: MOTRIN TAB 800 MG PO PRN (20:41)
[2016-10-27] MEDS: MAALOX or MYLANTA PO PRN (21:03)
[2016-10-27] MEDS: PHENERGAN TAB 25 MG PO PRN (21:08)
[2016-10-27] MEDS: CHECK PATCH XX SCH (21:16)
[2016-10-28] MEDS: MAALOX or MYLANTA PO PRN ×2 (01:47→13:20)
[2016-10-28] MEDS: PHENERGAN TAB 25 MG PO PRN ×2 (02:44→20:13)
[2016-10-28] MEDS ORDERED: K-DUR TAB 20 MEQ PO PRN (04:56)
[2016-10-28] MEDS ORDERED: K-LYTE EFFERVESCENT PO PRN (04:56)
[2016-10-28] MEDS ORDERED: K-RIDER 10 MEQ/NS 100 ML 10 MEQ/100 ML BAG IV PRN (04:56)
[2016-10-28] MEDS ORDERED: POTASSIUM CHLORIDE LIQ 20 MEQ UDC PO PRN (04:56)
[2016-10-28 05:16] LABS: BASOPHILS % (AUTO) 0.5 % (0.2-1.0); EOSINOPHILS # (AUTO) 0.3 x10^3/uL (0.0-0.2); EOSINOPHILS % (AUTO) 4.3 % (0.9-2.9); HEMOGLOBIN 12.9 g/dL (13.5-18.0); LYMPHOCYTES # (AUTO) 1.9 X10^3/uL (1.3-2.9); LYMPHOCYTES % (AUTO) 26.4 % (21.0-51.0); MEAN CORPUSCULAR HEMOGLOBIN 28.2 pg (27.0-34.0); MEAN CORPUSCULAR VOLUME 82.8 fL (80.0-100.0); MEAN PLATELET VOLUME 9.8 fL (7.4-11.0); MONOCYTES # (AUTO) 0.6 x10^3/uL (0.3-0.8); MONOCYTES % (AUTO) 7.9 % (0.0-13.0); NEUTROPHILS # (AUTO) 4.3 x10^3/uL (2.2-4.8); NEUTROPHILS % (AUTO) 60.9 % (42.0-75.0); PLATELET COUNT 139 X10^3/uL (150.0-450.0); RED BLOOD COUNT 4.59 X10^6/uL (4.7-6.0)
[2016-10-28] MEDS: NORCO 5/325 MG TAB PO PRN ×3 (05:27→20:12)
[2016-10-28] MEDS: NS 1000 ML 1,000 ML IV SCH ×3 (07:32→23:41)
[2016-10-28] MEDS: VANCOMYCIN HCL 500 MG VIAL 500 MG in D5W 100 ML IV 100 ML IV SCH ×2 (09:51→20:13)
[2016-10-28] MEDS: NICODERM PATCH 21 MG/24 HR TD SCH (09:52)
[2016-10-28] MEDS: CHECK PATCH XX SCH (10:16)
--- NOTE | 2016-10-28 18:40 | DR.H&P ---
H&P - History & Physical for Day of: H&P Date: 10/27/16 - Chief Complaint Chief Complaint: RIGHT FOOT PAIN, SWELLING, REDNESS WHICH BEGAN ON TUESDAY. PT. WAS SEEN IN THE ER ON TUESDAY AND WAS GIVEN IV ANTIBITOICS AND ORAL ANTIBIOTICS TO TAKE AT HOME. - Allergies Allergies/Adverse Reactions: Allergies Allergy/AdvReac Type Severity Reaction Status Date / Time No Known Drug Allergies Allergy Verified 10/27/16 10:58 - History of Present Illness History of Present Illness: patient is a 41-year-old white male who was admitted from the emergency room after presenting with right lower extremity cellulitis. Patient was seen prior in the ER and started on by mouth antibiotics without improvement. Patient had a CT of the lower extremity to rule out osteomyelitis. Patient was started on vancomycin and admitted for further evaluation of cellulitis. Planned repeat a.m. labs and continue pain control - Past Medical History Past Medical History: denies: Diabetes, GERD, Hypertension - Past Surgical History Surgical History: No History - Family History Family Medical History: Cancer, MS, Coronary Artery Disease, Hypertension - Social History Does patient currently use any type of tobacco product: Yes Have you used tobacco products in the last 12 months: Yes Type of Tobacco Use: Cigarettes How many years tobacco product used: 22 Does any household member use tobacco: Yes Alcohol Use: None Drug Use: None - Review of Systems Constitutional: Fever, Chills Eyes: No Symptoms Reported ENT: No Symptoms Reported Respiratory: No Symptoms Reported Cardiovascular: No Symptoms Reported Gastrointestinal: No Symptoms Reported Genitourinary: No Symptoms Reported Musculoskeletal: Leg Pain, Foot Pain Skin: Other (redness increased warmth and swelling to right lower extremity) Neurological: No Symptoms Reported - Physical Exam Vital Signs: Temperature 97.7 F Pulse Rate [Left Brachial] 78 Pulse Rate [Right Radial] 91 Respiratory Rate 20 Blood Pressure [Left Arm] 120/67 O2 Sat by Pulse Oximetry 96 Oriented: Normal Eyes: Normal Ear: Normal Nose: Normal Throat: Normal Respiratory: Clear Throughout Cardiovascular: Normal : Normal Auscultation: Bowel Sounds: Normal Palpation: Normal Tenderness: Normal Skin: Red (right lower extremity), Tender, Hot Musculoskeletal: Right, Leg, Ankle, Foot, Swelling, Tender Psychiatric: Normal Speech Pattern: Clear - Assessment/Plan (1) Cellulitis and abscess of foot Status: Acute Plan: IV antibiotics, blood cultures, CBC and CMP on admission, CT of extremity in aVR, see report. Repeat a.m. labs
--- NOTE | 2016-10-28 18:41 | PCM.PROG ---
Progress Note - Progress Note for Day of Date: 10/28/16 - Subjective Subjective: Patient is a 41-year-old white male who was admitted one day ago from the emergency room for cellulitis of the right foot and ankle. Patient's white count improved to 7 this a.m. Continued redness and swelling and severe tenderness. We'll continue IV vancomycin and repeat a.m. labs - Past Medical Family Social History Past Med/Fam/Surg Hx: No changes since H&P Allergies: Allergies No Known Drug Allergies Allergy (Verified 10/27/16 10:58) - Review of Systems ROS: No change since H&P - Vital Signs and I&O's Vital Signs: Temperature 97.7 F Pulse Rate [Left Brachial] 78 Pulse Rate [Right Radial] 91 Respiratory Rate 20 Blood Pressure [Left Arm] 120/67 O2 Sat by Pulse Oximetry 96 Intake and Output: Intake & Output 10/26/16 10/27/16 10/28/16 10/29/16 11:59 11:59 11:59 11:59 Intake Total 1264 640 Balance 1264 640 - Physical Exam Oriented: Normal Eyes: Normal Ear: Normal Nose: Normal Throat: Normal Respiratory: Normal Cardiovascular: Normal : Normal Auscultation: Bowel Sounds: Normal Tenderness: Normal Skin: Red (right lower extremity), Tender, Hot Musculoskeletal: Right, Leg, Ankle, Foot, Swelling, Tender Psychiatric: Normal Speech Pattern: Clear - Laboratory and Diagnostics Result Diagrams: 10/28/16 04:30 10/27/16 11:30 Labs: Laboratory WBC 7.0 X10^3/uL (3.6-10.0) 10/28/16 04:30 RBC 4.59 X10^6/uL (4.7-6.0) L 10/28/16 04:30 Hgb 12.9 g/dL (13.5-18.0) L 10/28/16 04:30 Hct 38.0 % (42.0-54.0) L 10/28/16 04:30 MCV 82.8 fL (80.0-100.0) 10/28/16 04:30 MCH 28.2 pg (27.0-34.0) 10/28/16 04:30 MCHC 34.0 g/dL (33.0-35.0) 10/28/16 04:30 RDW 15.0 % (11.6-16.5) 10/28/16 04:30 Plt Count 139 X10^3/uL (150.0-450.0) L 10/28/16 04:30 MPV 9.8 fL (7.4-11.0) 10/28/16 04:30 Neut % 60.9 % (42.0-75.0) 10/28/16 04:30 Lymph % 26.4 % (21.0-51.0) 10/28/16 04:30 [place] % 7.9 % (0.0-13.0) 10/28/16 04:30 Eos % 4.3 % (0.9-2.9) H 10/28/16 04:30 Baso % 0.5 % (0.2-1.0) 10/28/16 04:30 Neut # 4.3 x10^3/uL (2.2-4.8) 10/28/16 04:30 Lymph # 1.9 X10^3/uL (1.3-2.9) 10/28/16 04:30 [place] # 0.6 x10^3/uL (0.3-0.8) 10/28/16 04:30 Eos # 0.3 x10^3/uL (0.0-0.2) H 10/28/16 04:30 Baso # 0.0 X10^3/uL (0.0-0.1) 10/28/16 04:30 Absolute Nucleated RBC 0.0 /100WBC 10/28/16 04:30 Sodium 136 mmol/L (136-145) 10/27/16 11:30 Corrected Sodium TNP 10/27/16 11:30 Potassium 3.3 mmol/L (3.5-5.1) L 10/27/16 11:30 Chloride 100 mmol/L (98-107) 10/27/16 11:30 Carbon Dioxide 28.4 mmol/L (21-32) 10/27/16 11:30 BUN 14 mg/dL (7-18) 10/27/16 11:30 Creatinine 1.02 mg/dL (0.70-1.30) 10/27/16 11:30 Est GFR (MDRD) Af Amer > 60 (>60) 10/27/16 11:30 Est GFR (MDRD) Non-Af > 60 (>60) 10/27/16 11:30 Glucose 104 mg/dL (65-99) H 10/27/16 11:30 Calcium 8.8 mg/dL (8.5-10.1) 10/27/16 11:30 Corrected Calcium TNP 10/27/16 11:30 Total Bilirubin 0.40 mg/dL (0.2-1.0) 10/27/16 11:30 AST 15 Units/L (15-37) 10/27/16 11:30 ALT 22 Units/L (12-78) 10/27/16 11:30 Alkaline Phosphatase 102 Units/L (46-116) 10/27/16 11:30 C-Reactive Protein 34.20 mg/L (0-3.0) H 10/27/16 11:30 Total Protein 7.1 g/dL (6.4-8.2) 10/27/16 11:30 Albumin 3.4 g/dL (3.4-5.0) 10/27/16 11:30 Globulin 3.7 g/dL (2.5-4.5) 10/27/16 11:30 Albumin/Globulin Ratio 0.9 Ratio (1.1-2.1) L 10/27/16 11:30 - Plan (1) Cellulitis and abscess of foot Status: Acute Plan: IV antibiotics, blood cultures, CBC and CMP on admission, CT of extremity in aVR, see report. Repeat a.m. labs
[2016-10-28 20:43] LABS: CREATININE 0.9 mg/dL (0.70-1.30); VANCOMYCIN,TROUGH 2.8 ug/mL (15-20)
[2016-10-28] MEDS ORDERED: PHARMACY CONSULT - VANCOMYCIN XX SCH (21:05)
[2016-10-28] MEDS ORDERED: VANCOMYCIN HCL 500 MG VIAL 500 MG in NS 100 ML IV + SPIKE MINIBAG* 100 ML IV ONE (22:00)
[2016-10-29] MEDS: CHECK PATCH XX SCH ×2 (00:04→09:44)
[2016-10-29] MEDS: PHENERGAN TAB 25 MG PO PRN (05:51)
[2016-10-29] MEDS: NORCO 5/325 MG TAB PO PRN (05:51)
[2016-10-29 06:14] LABS: BASOPHILS # (AUTO) 0.1 X10^3/uL (0.0-0.1); BASOPHILS % (AUTO) 0.8 % (0.2-1.0); EOSINOPHILS # (AUTO) 0.3 x10^3/uL (0.0-0.2); EOSINOPHILS % (AUTO) 4.4 % (0.9-2.9); HEMATOCRIT 38.9 % (42.0-54.0); HEMOGLOBIN 13.2 g/dL (13.5-18.0); LYMPHOCYTES # (AUTO) 2.2 X10^3/uL (1.3-2.9); LYMPHOCYTES % (AUTO) 27.4 % (21.0-51.0); MEAN CORPUSCULAR HEMOGLOBIN 28.2 pg (27.0-34.0); MEAN CORPUSCULAR HGB CONC 33.9 g/dL (33.0-35.0); MEAN CORPUSCULAR VOLUME 83.2 fL (80.0-100.0); MEAN PLATELET VOLUME 10.1 fL (7.4-11.0); MONOCYTES # (AUTO) 0.5 x10^3/uL (0.3-0.8); MONOCYTES % (AUTO) 6.9 % (0.0-13.0); NEUTROPHILS # (AUTO) 4.8 x10^3/uL (2.2-4.8); NEUTROPHILS % (AUTO) 60.5 % (42.0-75.0); PLATELET COUNT 138 X10^3/uL (150.0-450.0); RED BLOOD COUNT 4.67 X10^6/uL (4.7-6.0); RED CELL DISTRIBUTION WIDTH 15.1 % (11.6-16.5); WHITE BLOOD COUNT 7.9 X10^3/uL (3.6-10.0)
[2016-10-29 06:31] LABS: ALANINE AMINOTRANSFERASE 25 Units/L (12-78); ALBUMIN 2.6 g/dL (3.4-5.0); ALKALINE PHOSPHATASE 82 Units/L (46-116); ASPARTATE AMINO TRANSFERASE 20 Units/L (15-37); BLOOD UREA NITROGEN 10 mg/dL (7-18); CALCIUM 7.7 mg/dL (8.5-10.1); CARBON DIOXIDE 25.4 mmol/L (21-32); CHLORIDE 107 mmol/L (98-107); COR CA(FOR HYPOALB) 8.8 mg/dL (8.5-10.1); CREATININE 0.71 mg/dL (0.70-1.30); GLUCOSE 106 mg/dL (65-99); SODIUM 139 mmol/L (136-145); TOTAL PROTEIN 5.8 g/dL (6.4-8.2); eGFR BLACK RACES > 60 (>60); eGFR NON BLACK RACES > 60 (>60)
[2016-10-29 07:48] VITALS: BP 133/76
[2016-10-29] MEDS ORDERED: CLEOCIN PO SCH (09:00)
[2016-10-29] MEDS ORDERED: BACTRIM DS TAB PO SCH (09:00)
[2016-10-29] MEDS ORDERED: VANCOMYCIN 1 GM PREMIX (ADDVANTAGE) 250 ML IV SCH (09:00)
[2016-10-29] MEDS: NICODERM PATCH 21 MG/24 HR TD SCH (09:22)
[2016-10-29] MEDS: NS 1000 ML 1,000 ML IV SCH (09:44)
--- NOTE | 2016-10-29 14:45 | PCM.DCPLAN ---
Discharge Summary - Admission Date Date of Admission: 10/27/16 - Discharge Date Discharge Date: 10/29/16 - Admission Diagnoses (1) Cellulitis and abscess of foot Status: Acute - Discharge Diagnoses Discharge Diagnosis: SAME ADMISSION - Discharge Medications Discharge Medications: Clindamycin HCl 300 mg PO Q6H #40 cap 10/29/16 [Rx] Ibuprofen [MOTRIN TAB 800 MG *] 800 mg PO Q8H PRN #30 tab 10/29/16 [Rx] Sulfamethoxazole-Trimethoprim [BACTRIM DS TAB 800/160 MG *] 1 tab PO BID #20 tab 10/29/16 [Rx] - Hospital Course Vital Signs: Temperature 97.6 F Pulse Rate [Left Brachial] 56 Pulse Rate [Right Radial] 91 Respiratory Rate 20 Blood Pressure [Left Arm] 133/76 O2 Sat by Pulse Oximetry 99 Latest Lab Results: Laboratory Last Values WBC 7.9 X10^3/uL (3.6-10.0) 10/29/16 04:05 RBC 4.67 X10^6/uL (4.7-6.0) L 10/29/16 04:05 Hgb 13.2 g/dL (13.5-18.0) L 10/29/16 04:05 Hct 38.9 % (42.0-54.0) L 10/29/16 04:05 MCV 83.2 fL (80.0-100.0) 10/29/16 04:05 MCH 28.2 pg (27.0-34.0) 10/29/16 04:05 MCHC 33.9 g/dL (33.0-35.0) 10/29/16 04:05 RDW 15.1 % (11.6-16.5) 10/29/16 04:05 Plt Count 138 X10^3/uL (150.0-450.0) L 10/29/16 04:05 MPV 10.1 fL (7.4-11.0) 10/29/16 04:05 Neut % 60.5 % (42.0-75.0) 10/29/16 04:05 Lymph % 27.4 % (21.0-51.0) 10/29/16 04:05 [place] % 6.9 % (0.0-13.0) 10/29/16 04:05 Eos % 4.4 % (0.9-2.9) H 10/29/16 04:05 Baso % 0.8 % (0.2-1.0) 10/29/16 04:05 Neut # 4.8 x10^3/uL (2.2-4.8) 10/29/16 04:05 Lymph # 2.2 X10^3/uL (1.3-2.9) 10/29/16 04:05 [place] # 0.5 x10^3/uL (0.3-0.8) 10/29/16 04:05 Eos # 0.3 x10^3/uL (0.0-0.2) H 10/29/16 04:05 Baso # 0.1 X10^3/uL (0.0-0.1) 10/29/16 04:05 Absolute Nucleated RBC 0.1 /100WBC 10/29/16 04:05 Sodium 139 mmol/L (136-145) 10/29/16 04:05 Corrected Sodium TNP 10/29/16 04:05 Potassium 3.9 mmol/L (3.5-5.1) 10/29/16 04:05 Chloride 107 mmol/L (98-107) 10/29/16 04:05 Carbon Dioxide 25.4 mmol/L (21-32) 10/29/16 04:05 BUN 10 mg/dL (7-18) 10/29/16 04:05 Creatinine 0.71 mg/dL (0.70-1.30) 10/29/16 04:05 Est GFR (MDRD) Af Amer > 60 (>60) 10/29/16 04:05 Est GFR (MDRD) Non-Af > 60 (>60) 10/29/16 04:05 Glucose 106 mg/dL (65-99) H 10/29/16 04:05 Calcium 7.7 mg/dL (8.5-10.1) L 10/29/16 04:05 Corrected Calcium 8.8 mg/dL (8.5-10.1) 10/29/16 04:05 Total Bilirubin 0.10 mg/dL (0.2-1.0) L 10/29/16 04:05 AST 20 Units/L (15-37) 10/29/16 04:05 ALT 25 Units/L (12-78) 10/29/16 04:05 Alkaline Phosphatase 82 Units/L (46-116) 10/29/16 04:05 C-Reactive Protein 20.80 mg/L (0-3.0) H 10/29/16 04:05 C-React Prot High Sens Cancelled 10/29/16 04:05 Total Protein 5.8 g/dL (6.4-8.2) L 10/29/16 04:05 Albumin 2.6 g/dL (3.4-5.0) L 10/29/16 04:05 Globulin 3.2 g/dL (2.5-4.5) 10/29/16 04:05 Albumin/Globulin Ratio 0.8 Ratio (1.1-2.1) L 10/29/16 04:05 Vancomycin Trough 2.8 ug/mL (15-20) L 10/28/16 20:18 Hospital Course: The patient is a 41-year-old white male who was a an ER admission after presenting with cellulitis to the right lower extremity foot and ankle. Patient was previously seen in the ER and started on by mouth antibiotics without improvement. Patient had increased redness and tenderness and edema to the right foot from base the toes up above the ankle patient's white blood count on admission was 12.7. Patient's CRP was 34.2. Patient was started on IV vancomycin. Patient's blood cultures this morning were negative. Patient has received 3 days of IV antibiotics and has significant improvement in redness and edema. Patient has mild localized edema and redness to the base of toes and top of right foot patient's white count normal this a.m. CRP improved to 20.8 plan to discharge patient home today with a one-week follow-up with Dr. Mehta. Patient instructed to elevate lower extremity patient placed on by mouth Bactrim and clindamycin. Patient was given Motrin 800 for pain patient was given a work excuse for no work until he follows up with Dr. Mehta. Patient instructed to return to the emergency room if acute condition changed or worsened unexpectedly patient verbalized understanding and was discharged home by private vehicle - Discharge Plan Disposition: 01 HOME, SELF-CARE Condition: Stable Prescriptions: Clindamycin HCl 300 mg PO Q6H #40 cap Ibuprofen [MOTRIN TAB 800 MG *] 800 mg PO Q8H PRN #30 tab PRN Reason: Pain/Inflammation Sulfamethoxazole-Trimethoprim [BACTRIM DS TAB 800/160 MG *] 1 tab PO BID #20 tab - Follow ups/Referrals Follow ups/Referrals: GARLAND RODRIGUEZ [Nurse Practitioner] - 11/09/16 8:45 am - Instructions Instructions: Cellulitis, Ibuprofen tablets and capsules, Wound Check, Clindamycin capsules, Sulfamethoxazole; Trimethoprim, SMX-TMP tablets Additional Instructions: Problem: Infection Goal: Temperature within normal limits. Resolved infection. Instructions: Follow provided instructions. Follow up with primary physician as directed. Contact primary care physician or report to the closest Emergency Room if condition worsens. Forms: Patient Portal
== END 2016-10-29 11:20 | disposition home or self-care (01) | DRG 603 ==
LOC: ER 10:59 → MED/SURG 13:32
PROVIDERS: ADMIT Internal Medicine; ATTEND Obstetrics & Gynecology Obstetrics
DX: L03.115 Cellulitis of right lower limb (principal); L02.415 Cutaneous abscess of right lower limb; R79.82 Elevated C-reactive protein (CRP)
CPT/HCPCS: 36415; 73700; 80053; 80202; 82565; 85025; 86140; 87040; 99284; A4216; A4222; Q0169; J1885; J2270; J3370

== ENCOUNTER 2017-01-26 23:24 | Emergency (ER) | payer SELFPAY ==
[2017-01-26 23:28] VITALS: BP 120/74; BMI 24.4
== END 2017-01-27 00:22 | disposition left against medical advice (07) ==
LOC: ER 23:32
DX: R11.2 Nausea with vomiting, unspecified (principal)
CPT/HCPCS: 99281

== ENCOUNTER 2019-07-30 18:40 | Observation (INO) ==
--- NOTE | 2019-07-30 18:56 | DR.CP ---
HPI - Time Seen Time seen: 18:55 - PCP Primary Care Physician: SOLEDAD - HPI Comment HPI Comment: Patient complaint of sharp chest pain radiating to back. Onset 1300 today, denies dyspnea, nausea vomiting, diaphoesis. Does not feel like his stoamach problem. - Complaint Chief Complaint:: PT AMBULATORY IN ED WITH C/O MIDSTERNAL CHEST PAIN THAT STARTED AROUNG 1PM AND COMES AND GOES BUT NOW CONSTANT. - COVID-19 Coronavirus risk:travel/contact w/high risk person: No Has patient experienced Coronavirus symptoms: No - Reviewed Nurses Notes Review: Yes - Source History Provided: Patient - Mode of Arrival Mode of Arrival: Ambulatory - Timing Onset of Chief Complaint: 07/30/19 Came on: Suddenly Pain: Present Now - Duration Duration: Intermittent How lon Duration: Hours - Location Location of Chest Pain: Chest Chest Pain Radiation Location: Back - Context Onset: At rest Cardiac Risk Factors: Smoker PE Risk Factors: None History of: None Prehospital Care: None PMH - PMH Past Medical History: No Past Medical History: denies: Diabetes, GERD, Hypertension Past Medical History Comment: hpylori in past Past Surgical History: No Surgical History: No History - Family History History of Family Medical Conditions: Yes Family Medical History: Cancer, [place], Hypertension - Social History Does patient currently use any type of tobacco product: Yes Have you used tobacco products in the last 12 months: Yes Type of Tobacco Use: Cigarettes Does any household member use tobacco: No Alcohol Use: None Do you use any recreational Drugs:: Yes (MARIJUANA) Lives With: Family Lives Where: Home - Travel Risk Coronavirus risk:travel/contact w/high risk person: No Has patient experienced Coronavirus symptoms: No - infectious screening In the last 2 months have you had wt loss of >10#?: NO Have you had fever, night sweats or hemotysis?: No Have you traveled outside the country in the last 6 months?: No Isolation: Standard ROS - Review of Systems Constitutional: No Symptoms Reported Eyes: No Symptoms Reported ENTM: No Symptoms Reported Respiratoy: No Symptoms Reported Cardiovascular: Chest Pain Gastrointestinal/Abdominal: No Symptoms Reported Genitourinary: No Symptoms Reported Neurological: No Symptoms Reported Musculoskeletal: No Symptoms Reported Integumentary: No Symptoms Reported Hematologic/Lymphatic: No Symptoms Reported Endocrine: No Symptoms Reported Psychiatric: No Symptoms Reported All Other Systems: Reviewed and Negative PE - General Limitations: No Limitations General Appearance: Alert, In No Apparent Distress - Head Head Exam: Normal Inspection - Eyes Eye exam: Normal Appearance, EOMI - ENT ENT Exam: Normal Exam - Chest Chest Inspection: Normal Inspection. negative: Tenderness - Respiratory Respiratory Exam: Normal Lung Sounds Bilat Respiratory Exam: Bilateral Clear to Auscultation - Cardiovascular Cardiovascular Exam: Regular Rate, Normal Rhythm Pulse: Normal Edema: Normal - Abdominal Exam Abdominal Exam: Normal Inspection, Normal Bowel Sounds, Soft. negative: D istention, Tenderness - Extremities Extremities Exam: Normal Inspection - Back Back Exam: Normal Inspection, Full ROM - Neurologic Neurological Exam: Alert - Vitals Vitals: Temperature 97.1 F Pulse Rate 90 Respiratory Rate 20 Blood Pressure [Left Arm] 186/87 Blood Pressure 129/73 O2 Sat by Pulse Oximetry 97 Course - Consultation Called: 21:40 Call Returned: 21:40 Consultation Comments: Case discussed admit and get GB Ultrasound ROR - Labs Reviewed Result Diagrams: 07/30/19 19:36 07/30/19 19:36 - XRAY XRAY Interpreted by: Self - EKG Rate: 79 [place]: Normal Rhythm: NSR Block: None Hypertrophy: None ST: Normal - Labs Reviewed Laboratory: WBC 12.0 X10^3/uL (3.6-10.0) H 07/30/19 19:36 RBC 5.16 X10^6/uL (4.7-6.0) 07/30/19 19:36 Hgb 14.9 g/dL (13.5-18.0) 07/30/19 19:36 Hct 44.1 % (42.0-54.0) 07/30/19 19:36 MCV 85.5 fL (80.0-100.0) 07/30/19 19:36 MCH 28.8 pg (27.0-34.0) 07/30/19 19:36 MCHC 33.8 g/dL (33.0-35.0) 07/30/19 19:36 RDW 15.5 % (11.6-16.5) 07/30/19 19:36 Plt Count 175 X10^3/uL (150.0-450.0) 07/30/19 19:36 MPV 8.0 fL (7.4-11.0) 07/30/19 19:36 Neut % (Auto) 61.8 % (42.0-75.0) 07/30/19 19:36 Lymph % (Auto) 23.0 % (21.0-51.0) 07/30/19 19:36 [place] % (Auto) 7.0 % (0.0-13.0) 07/30/19 19:36 Eos % (Auto) 8.0 % (0.9-2.9) H 07/30/19 19:36 Baso % (Auto) 0.2 % (0.2-1.0) 07/30/19 19:36 Neut # (Auto) 7.4 x10^3/uL (2.2-4.8) H 07/30/19 19:36 Lymph # (Auto) 2.8 X10^3/uL (1.3-2.9) 07/30/19 19:36 [place] # (Auto) 0.8 x10^3/uL (0.3-0.8) 07/30/19 19:36 Eos # (Auto) 1.0 x10^3/uL (0.0-0.2) H 07/30/19 19:36 Baso # (Auto) 0.0 X10^3/uL (0.0-0.1) 07/30/19 19:36 Absolute Nucleated RBC 0.1 /100WBC 07/30/19 19:36 Sodium 138 mmol/L (136-145) 07/30/19 19:36 Corrected Sodium TNP 07/30/19 19:36 Potassium 3.9 mmol/L (3.5-5.1) 07/30/19 19:36 Chloride 100 mmol/L (98-107) 07/30/19 19:36 Carbon Dioxide 27.0 mmol/L (21-32) 07/30/19 19:36 BUN 11 mg/dL (7-18) 07/30/19 19:36 Creatinine 1.05 mg/dL (0.70-1.30) 07/30/19 19:36 Est GFR (MDRD) Af Amer > 60 (>60) 07/30/19 19:36 Est GFR (MDRD) Non-Af > 60 (>60) 07/30/19 19:36 Glucose 97 mg/dL (65-99) 07/30/19 19:36 Calcium 8.8 mg/dL (8.5-10.1) 07/30/19 19:36 Corrected Calcium TNP 07/30/19 19:36 Total Bilirubin 0.30 mg/dL (0.2-1.0) 07/30/19 19:36 AST 62 Units/L (15-37) H 07/30/19 19:36 ALT 320 Units/L (12-78) H 07/30/19 19:36 Alkaline Phosphatase 154 Units/L (46-116) H 07/30/19 19:36 Creatine Kinase 68 Units/L (39-308) 07/30/19 19:36 CK-MB (CK-2) 1.4 ng/mL (0-4.0) 07/30/19 19:36 CK/CKMB % Calc 2.1 % (<4) 07/30/19 19:36 Troponin I < 0.02 ng/mL (0-1.5) 07/30/19 19:36 Total Protein 6.9 g/dL (6.4-8.2) 07/30/19 19:36 Albumin 3.4 g/dL (3.4-5.0) 07/30/19 19:36 Globulin 3.5 g/dL (2.5-4.5) 07/30/19 19:36 Albumin/Globulin Ratio 1.0 Ratio (1.1-2.1) L 07/30/19 19:36 Lipase 211 Units/L (73-393) 07/30/19 19:36 Urine Opiates Screen Negative (NEG=<300) 07/30/19 21:00 Urine Methadone Screen Negative (NEG=<300) 07/30/19 21:00 Ur Barbiturates Screen Negative (NEG=<200) 07/30/19 21:00 Ur Phencyclidine Scrn Negative (NEG=<25) 07/30/19 21:00 Ur Amphetamines Screen Negative (NEG=<1000) 07/30/19 21:00 U Benzodiazepines Scrn Negative (NEG=<200) 07/30/19 21:00 Urine Cocaine Screen Negative (NEG=<300) 07/30/19 21:00 U Marijuana (THC) Screen Positive (NEG=<50) A 07/30/19 21:00 - XRAY Xray Findings: AAS: NO FREE AIR NO air fluid levels (FRED YANG) Opioid - Opioid Risk Tool Age (Fred box if 16-45): Yes History of Preadolescent Sexual Abuse: No Total: 1 Total Score Risk Category: Low Risk - Diagnosis Discharge Problem: Abdominal pain, acute - Discharge Plan Condition: Stable
[2019-07-30] MEDS ORDERED: ZOFRAN TAB 4 MG PO ONE (19:13)
[2019-07-30] MEDS ORDERED: LEVSIN/MAALOX/LIDOC VISC PO ONE (19:14)
[2019-07-30] MEDS ORDERED: ASPIRIN 81 MG CHEWTAB ONE (19:18)
[2019-07-30] MEDS ORDERED: LEVSIN/MAALOX/LIDOC VISC ONE (19:18)
[2019-07-30] MEDS ORDERED: ZOFRAN TAB 4 MG ONE (19:18)
[2019-07-30] MEDS: ASPIRIN 81 MG CHEWTAB PO SCH (19:21)
[2019-07-30 19:48] LABS: BASOPHILS % (AUTO) 0.2 % (0.2-1.0); HEMATOCRIT 44.1 % (42.0-54.0); HEMOGLOBIN 14.9 g/dL (13.5-18.0); LYMPHOCYTES # (AUTO) 2.8 X10^3/uL (1.3-2.9); MEAN CORPUSCULAR HEMOGLOBIN 28.8 pg (27.0-34.0); MEAN CORPUSCULAR HGB CONC 33.8 g/dL (33.0-35.0); MEAN CORPUSCULAR VOLUME 85.5 fL (80.0-100.0); MONOCYTES # (AUTO) 0.8 x10^3/uL (0.3-0.8); NEUTROPHILS # (AUTO) 7.4 x10^3/uL (2.2-4.8); NEUTROPHILS % (AUTO) 61.8 % (42.0-75.0); PLATELET COUNT 175 X10^3/uL (150.0-450.0); RED BLOOD COUNT 5.16 X10^6/uL (4.7-6.0); RED CELL DISTRIBUTION WIDTH 15.5 % (11.6-16.5)
[2019-07-30 20:03] LABS: BLOOD UREA NITROGEN 11 mg/dL (7-18); CALCIUM 8.8 mg/dL (8.5-10.1); CHLORIDE 100 mmol/L (98-107); CREATININE 1.05 mg/dL (0.70-1.30); SODIUM 138 mmol/L (136-145); TROPONIN I < 0.02 ng/mL (0-1.5); eGFR NON BLACK RACES > 60 (>60)
[2019-07-30 20:18] LABS: ALANINE AMINOTRANSFERASE 320 Units/L (12-78); ALBUMIN 3.4 g/dL (3.4-5.0); ALKALINE PHOSPHATASE 154 Units/L (46-116); ASPARTATE AMINO TRANSFERASE 62 Units/L (15-37); CKMB % 2.1 % (<4); CREATINE KINASE 68 Units/L (39-308); CREATINE KINASE MB 1.4 ng/mL (0-4.0); LIPASE 211 Units/L (73-393); TOTAL PROTEIN 6.9 g/dL (6.4-8.2)
--- NOTE | 2019-07-30 22:25 | US ---
HISTORY:Right upper quadrant painStudy: Right upper quadrant abdominal ultrasoundComparison: NoneTechnique: Multiple westbrook scale and color flow Doppler images of the right upper quadrant were obtained.Findings:The liver is normal in echotexture and size. No focal intraparenchymal mass or intrahepatic biliary ductal dilatation is observed. There is hepatopetal flow in the portal vein. Gallbladder sludge is noted. No gallstones are identified. The common bile duct measures 3.5 mm, within normal limits. No pericholecystic fluid or gallbladder wall thickening. No sonographic Mendez's sign reported.The right kidney appears normal in size without focal parenchymal mass or nephrolithiasis. The right kidney measures 10 x 4 x 5 cm. No evidence of hydronephrosis. The visualized portions of the pancreas are unremarkable.IMPRESSION:1. Gallbladder sludge without evidence of gallstones or acute cholecystitis.Electronically signed by: MARIANNA LINDA (Jul 30, 2019 22:23:15)
[2019-07-30 23:14] VITALS: BMI 24.1
--- NOTE | 2019-07-30 23:22 | RAD ---
Acute abdomen series supine upright and chestIndication: Right upper quadrant painCOMPARISONUltrasound gallbladder from the same day and April 18, 2019 radiographFINDINGSChest radiograph demonstrates no pneumothorax, effusion or consolidation. Heart size is normal. There is no free air or pneumatosis. If no consolidation is identified. Gas stool seen in the colon.IMPRESSIONNo acute abnormality identifiedElectronically signed by: BLAZE AGUILAR (Jul 30, 2019 23:20:56)
[2019-07-30] MEDS ORDERED: NICOTINE PATCH TD ONE (23:34)
[2019-07-30] MEDS: NICOTINE PATCH TD SCH (23:41)
[2019-07-30] MEDS: TORADOL 30 MG VIAL IVP PRN (23:51)
[2019-07-31] MEDS: TORADOL 30 MG VIAL IVP PRN ×3 (06:01→21:35)
[2019-07-31] MEDS: NICOTINE PATCH TD SCH (09:01)
[2019-07-31] MEDS: ASPIRIN 81 MG CHEWTAB PO SCH (09:01)
[2019-07-31] MEDS ORDERED: DILAUDID INJ IVP PRN (09:15)
--- NOTE | 2019-07-31 09:38 | DR.PROGNOT ---
Hospital Progress Notes - Progress Note for Day of: Progress Note Date: 07/31/19 - Chief Complaint Chief Complaint: c/o epigastric and RUQ pain . no nausea or vomiting . chronic GERD with severe heartburn all the times . h/o previous episodes of similar pain . family h/o GB disease . GB US showed sludge in the GB . elevated liver enzymes and WBC . - Past Medical Family Social History Past Med/Fam/Surg Hx: No changes since H&P Allergies: Allergies No Known Drug Allergies Allergy (Verified 07/30/19 23:28) - Review Of Systems ROS: No change since H&P - Vital Signs Vital Signs: Temperature 97.5 F Pulse Rate [Left Brachial] 54 Pulse Rate 90 Respiratory Rate 18 Blood Pressure [Left Arm] 140/72 Blood Pressure 129/73 O2 Sat by Pulse Oximetry 98 - Physical Exam Oriented: Normal Eyes: Normal Ear: Normal Nose: Normal Throat: Normal Cardiovascular: Normal : Normal GI:Auscultation: Normal GI:Palpation: Normal GI: Tenderness: RUQ (soft abdomen with moderate tenderness , no rebound . BS+), Epigastric Skin: Normal Musculoskeletal: Normal Psychiatric: Normal Mood Description: Calm Affect: Normal Speech Pattern: Clear, Appropriate - Laboratory and Diagnostics Result Diagrams: 07/30/19 19:36 07/30/19 19:36 Labs: Laboratory WBC 12.0 X10^3/uL (3.6-10.0) H 07/30/19 19:36 RBC 5.16 X10^6/uL (4.7-6.0) 07/30/19 19:36 Hgb 14.9 g/dL (13.5-18.0) 07/30/19 19:36 Hct 44.1 % (42.0-54.0) 07/30/19 19:36 MCV 85.5 fL (80.0-100.0) 07/30/19 19:36 MCH 28.8 pg (27.0-34.0) 07/30/19 19:36 MCHC 33.8 g/dL (33.0-35.0) 07/30/19 19:36 RDW 15.5 % (11.6-16.5) 07/30/19 19:36 Plt Count 175 X10^3/uL (150.0-450.0) 07/30/19 19:36 MPV 8.0 fL (7.4-11.0) 07/30/19 19:36 Neut % (Auto) 61.8 % (42.0-75.0) 07/30/19 19:36 Lymph % (Auto) 23.0 % (21.0-51.0) 07/30/19 19:36 Josephine % (Auto) 7.0 % (0.0-13.0) 07/30/19 19:36 Eos % (Auto) 8.0 % (0.9-2.9) H 07/30/19 19:36 Baso % (Auto) 0.2 % (0.2-1.0) 07/30/19 19:36 Neut # (Auto) 7.4 x10^3/uL (2.2-4.8) H 07/30/19 19:36 Lymph # (Auto) 2.8 X10^3/uL (1.3-2.9) 07/30/19 19:36 Josephine # (Auto) 0.8 x10^3/uL (0.3-0.8) 07/30/19 19:36 Eos # (Auto) 1.0 x10^3/uL (0.0-0.2) H 07/30/19 19:36 Baso # (Auto) 0.0 X10^3/uL (0.0-0.1) 07/30/19 19:36 Absolute Nucleated RBC 0.1 /100WBC 07/30/19 19:36 Sodium 138 mmol/L (136-145) 07/30/19 19:36 Corrected Sodium TNP 07/30/19 19:36 Potassium 3.9 mmol/L (3.5-5.1) 07/30/19 19:36 Chloride 100 mmol/L (98-107) 07/30/19 19:36 Carbon Dioxide 27.0 mmol/L (21-32) 07/30/19 19:36 BUN 11 mg/dL (7-18) 07/30/19 19:36 Creatinine 1.05 mg/dL (0.70-1.30) 07/30/19 19:36 Est GFR (MDRD) Af Amer > 60 (>60) 07/30/19 19:36 Est GFR (MDRD) Non-Af > 60 (>60) 07/30/19 19:36 Glucose 97 mg/dL (65-99) 07/30/19 19:36 Calcium 8.8 mg/dL (8.5-10.1) 07/30/19 19:36 Corrected Calcium TNP 07/30/19 19:36 Total Bilirubin 0.30 mg/dL (0.2-1.0) 07/30/19 19:36 AST 62 Units/L (15-37) H 07/30/19 19:36 ALT 320 Units/L (12-78) H 07/30/19 19:36 Alkaline Phosphatase 154 Units/L (46-116) H 07/30/19 19:36 Creatine Kinase 68 Units/L (39-308) 07/30/19 19:36 CK-MB (CK-2) 1.4 ng/mL (0-4.0) 07/30/19 19:36 CK/CKMB % Calc 2.1 % (<4) 07/30/19 19:36 Troponin I < 0.02 ng/mL (0-1.5) 07/30/19 19:36 Total Protein 6.9 g/dL (6.4-8.2) 07/30/19 19:36 Albumin 3.4 g/dL (3.4-5.0) 07/30/19 19:36 Globulin 3.5 g/dL (2.5-4.5) 07/30/19 19:36 Albumin/Globulin Ratio 1.0 Ratio (1.1-2.1) L 07/30/19 19:36 Lipase 211 Units/L (73-393) 07/30/19 19:36 Urine Opiates Screen Negative (NEG=<300) 07/30/19 21:00 Urine Methadone Screen Negative (NEG=<300) 07/30/19 21:00 Ur Barbiturates Screen Negative (NEG=<200) 07/30/19 21:00 Ur Phencyclidine Scrn Negative (NEG=<25) 07/30/19 21:00 Ur Amphetamines Screen Negative (NEG=<1000) 07/30/19 21:00 U Benzodiazepines Scrn Negative (NEG=<200) 07/30/19 21:00 Urine Cocaine Screen Negative (NEG=<300) 07/30/19 21:00 U Marijuana (THC) Screen Positive (NEG=<50) A 07/30/19 21:00 - Assessment and Plan 1: chest and upper abdominal pain . acute cholecystitis with GB sludge . liver dysfunction . GERD with severe heartburn . smoker and Marijuana user. onIVF, IV Protonix , pain control ,. for biliary scan with CCK - Problem Patient Problems: Patient Problems Abdominal pain, acute (Acute) R10.9
[2019-07-31] MEDS: PROTONIX INJ 40 MG VIAL IVP SCH (09:54)
[2019-07-31] MEDS: D5 1/2 NS 1000 ML 1,000 ML IV SCH ×2 (09:54→18:35)
[2019-07-31 09:56] LABS: BASOPHILS # (AUTO) 0.1 X10^3/uL (0.0-0.1); BASOPHILS % (AUTO) 1.3 % (0.2-1.0); EOSINOPHILS # (AUTO) 1.4 x10^3/uL (0.0-0.2); EOSINOPHILS % (AUTO) 13.6 % (0.9-2.9); HEMATOCRIT 44.9 % (42.0-54.0); HEMOGLOBIN 15.2 g/dL (13.5-18.0); LYMPHOCYTES # (AUTO) 2.3 X10^3/uL (1.3-2.9); LYMPHOCYTES % (AUTO) 21.9 % (21.0-51.0); MEAN CORPUSCULAR HEMOGLOBIN 29.1 pg (27.0-34.0); MEAN CORPUSCULAR HGB CONC 33.9 g/dL (33.0-35.0); MEAN CORPUSCULAR VOLUME 85.7 fL (80.0-100.0); MEAN PLATELET VOLUME 8.3 fL (7.4-11.0); MONOCYTES # (AUTO) 0.7 x10^3/uL (0.3-0.8); MONOCYTES % (AUTO) 7.2 % (0.0-13.0); NEUTROPHILS # (AUTO) 5.8 x10^3/uL (2.2-4.8); PLATELET COUNT 161 X10^3/uL (150.0-450.0); RED BLOOD COUNT 5.24 X10^6/uL (4.7-6.0); RED CELL DISTRIBUTION WIDTH 15.5 % (11.6-16.5); WHITE BLOOD COUNT 10.3 X10^3/uL (3.6-10.0)
[2019-07-31 10:07] LABS: ALANINE AMINOTRANSFERASE 258 Units/L (12-78); ALBUMIN 3.2 g/dL (3.4-5.0); ALKALINE PHOSPHATASE 143 Units/L (46-116); ASPARTATE AMINO TRANSFERASE 49 Units/L (15-37); BLOOD UREA NITROGEN 14 mg/dL (7-18); CALCIUM 8.5 mg/dL (8.5-10.1); CARBON DIOXIDE 30.6 mmol/L (21-32); CHLORIDE 102 mmol/L (98-107); COR CA(FOR HYPOALB) 9.1 mg/dL (8.5-10.1); CREATININE 1.13 mg/dL (0.70-1.30); SODIUM 139 mmol/L (136-145); TOTAL PROTEIN 6.7 g/dL (6.4-8.2); eGFR NON BLACK RACES > 60 (>60)
[2019-08-01] MEDS: D5 1/2 NS 1000 ML 1,000 ML IV SCH ×3 (03:39→18:22)
[2019-08-01 05:53] LABS: BASOPHILS % (AUTO) 0.3 % (0.2-1.0); EOSINOPHILS # (AUTO) 1.5 x10^3/uL (0.0-0.2); EOSINOPHILS % (AUTO) 14.7 % (0.9-2.9); HEMATOCRIT 42.5 % (42.0-54.0); HEMOGLOBIN 14.1 g/dL (13.5-18.0); LYMPHOCYTES # (AUTO) 2.7 X10^3/uL (1.3-2.9); LYMPHOCYTES % (AUTO) 27.5 % (21.0-51.0); MEAN CORPUSCULAR HGB CONC 33.3 g/dL (33.0-35.0); MEAN CORPUSCULAR VOLUME 87.3 fL (80.0-100.0); MEAN PLATELET VOLUME 8.9 fL (7.4-11.0); MONOCYTES # (AUTO) 0.7 x10^3/uL (0.3-0.8); MONOCYTES % (AUTO) 7.2 % (0.0-13.0); NEUTROPHILS % (AUTO) 50.3 % (42.0-75.0); PLATELET COUNT 131 X10^3/uL (150.0-450.0); RED BLOOD COUNT 4.87 X10^6/uL (4.7-6.0); RED CELL DISTRIBUTION WIDTH 15.3 % (11.6-16.5)
[2019-08-01 06:06] LABS: ALANINE AMINOTRANSFERASE 200 Units/L (12-78); ALBUMIN 2.8 g/dL (3.4-5.0); ALKALINE PHOSPHATASE 120 Units/L (46-116); ASPARTATE AMINO TRANSFERASE 44 Units/L (15-37); BLOOD UREA NITROGEN 9 mg/dL (7-18); CALCIUM 8.1 mg/dL (8.5-10.1); CARBON DIOXIDE 28.5 mmol/L (21-32); CHLORIDE 106 mmol/L (98-107); COR CA(FOR HYPOALB) 9.1 mg/dL (8.5-10.1); CREATININE 0.91 mg/dL (0.70-1.30); SODIUM 140 mmol/L (136-145); TOTAL PROTEIN 5.9 g/dL (6.4-8.2); eGFR NON BLACK RACES > 60 (>60)
[2019-08-01] MEDS: NICOTINE PATCH TD SCH (10:15)
[2019-08-01] MEDS: PROTONIX INJ 40 MG VIAL IVP SCH (13:00)
[2019-08-01] MEDS: ASPIRIN 81 MG CHEWTAB PO SCH (14:30)
--- NOTE | 2019-08-01 14:44 | NM ---
HISTORY:Right upper quadrant painStudy: Nuclear medicine HIDA scan with ejection fractionComparison:Ultrasound 07/30/2019Technique: Multiple scintigraphic images of the abdomen were obtained the intravenous administration of 5.5 mCi of technetium labeled Choletec.Estimated gallbladder ejection fraction was calculated based on the physiologic response to drinking 8 oz of Ensure.Findings:Homogeneous uptake of radiotracer is seen throughout the liver. This intrabiliary ductal system is observed normally. The common hepatic and common bile duct grossly appear unremarkable with normal biliary-bowel transit. The gallbladder is observed to fill normally.After drinking 8oz of Ensure, a gallbladder ejection fraction of 59% (normal > 35%) is observed.IMPRESSION:1. Normal hepatobiliary scan with gallbladder ejection fraction of 59%.Electronically signed by: MARIANNA LINDA (Aug 01, 2019 15:43:13)
[2019-08-01] MEDS: TORADOL 30 MG VIAL IVP PRN (21:40)
[2019-08-02] MEDS: D5 1/2 NS 1000 ML 1,000 ML IV SCH (02:07)
[2019-08-02] MEDS: TORADOL 30 MG VIAL IVP PRN (03:43)
[2019-08-02] MEDS ORDERED: FENTANYL INJ 250 mcg ONE (08:08)
[2019-08-02] MEDS ORDERED: DECADRON INJ ONE (08:08)
[2019-08-02] MEDS ORDERED: BACTROBAN TOPICAL OINT ONE (08:23)
[2019-08-02] MEDS ORDERED: LR 1000 ML IV 1,000 ML IV ONE (08:32)
[2019-08-02] MEDS ORDERED: ANCEF 1 GRAM IV PREMIX* 2 G/100 ML BAG IV ONE (08:33)
[2019-08-02] MEDS ORDERED: NORCURON INJ 10 MG VIAL ONE (09:25)
[2019-08-02] MEDS ORDERED: DIPRIVAN VIAL ONE (09:25)
[2019-08-02] MEDS ORDERED: ROBINUL ONE (09:25)
[2019-08-02] MEDS ORDERED: ZOFRAN INJ 4 MG VIAL ONE (09:25)
[2019-08-02] MEDS ORDERED: VERSED ONE (09:25)
[2019-08-02] MEDS ORDERED: TORADOL 30 MG VIAL ONE (09:25)
[2019-08-02] MEDS ORDERED: XYLOCAINE 2 % (PLAIN) ONE (09:25)
[2019-08-02] MEDS ORDERED: NEOSTIGMINE INJ ONE (09:25)
[2019-08-02] MEDS ORDERED: LTA KIT LIDOCAINE 4% ONE (09:25)
[2019-08-02] MEDS ORDERED: SUPRANE ONE (09:25)
[2019-08-02] MEDS ORDERED: QUELICIN (OR ANECTINE) ONE (09:25)
--- NOTE | 2019-08-02 09:43 | DR.PROGNOT ---
Hospital Progress Notes - Progress Note for Day of: Progress Note Date: 08/01/19 - Chief Complaint Chief Complaint: c/o epigastric and RUQ pain . no nausea or vomiting . hida SCAN WAS NEGATIVE . gb us SHOWED SLUDGE . d/w pT THE FINDINGS AND THE BENEFITS OF LAP LU . ALL RISKS WERE d/w pT . HE WANTED TO HAVE THE SURGERY DURING THIS ADMISSION - Past Medical Family Social History Past Med/Fam/Surg Hx: No changes since H&P Allergies: Allergies No Known Drug Allergies Allergy (Verified 07/30/19 23:28) - Review Of Systems ROS: No change since H&P - Vital Signs Vital Signs: Temperature 97.0 F Pulse Rate [Right Brachial] 57 Pulse Rate [Left Brachial] 51 Pulse Rate 50 Respiratory Rate 18 Blood Pressure [Right Arm] 120/62 Blood Pressure [Left Arm] 133/74 Blood Pressure 126/66 O2 Sat by Pulse Oximetry 99 - Physical Exam Oriented: Normal Eyes: Normal Ear: Normal Nose: Normal Throat: Normal Cardiovascular: Normal : Normal GI:Auscultation: Normal GI:Palpation: Normal GI: Tenderness: RUQ (soft abdomen with moderate tenderness , no rebound . BS+), Epigastric Skin: Normal Musculoskeletal: Normal Psychiatric: Normal Mood Description: Calm Affect: Normal Speech Pattern: Clear - Laboratory and Diagnostics Result Diagrams: 08/01/19 05:12 08/01/19 05:12 Labs: Laboratory WBC 10.0 X10^3/uL (3.6-10.0) 08/01/19 05:12 RBC 4.87 X10^6/uL (4.7-6.0) 08/01/19 05:12 Hgb 14.1 g/dL (13.5-18.0) 08/01/19 05:12 Hct 42.5 % (42.0-54.0) 08/01/19 05:12 MCV 87.3 fL (80.0-100.0) 08/01/19 05:12 MCH 29.0 pg (27.0-34.0) 08/01/19 05:12 MCHC 33.3 g/dL (33.0-35.0) 08/01/19 05:12 RDW 15.3 % (11.6-16.5) 08/01/19 05:12 Plt Count 131 X10^3/uL (150.0-450.0) L 08/01/19 05:12 MPV 8.9 fL (7.4-11.0) 08/01/19 05:12 Neut % (Auto) 50.3 % (42.0-75.0) 08/01/19 05:12 Lymph % (Auto) 27.5 % (21.0-51.0) 08/01/19 05:12 [place] % (Auto) 7.2 % (0.0-13.0) 08/01/19 05:12 Eos % (Auto) 14.7 % (0.9-2.9) H 08/01/19 05:12 Baso % (Auto) 0.3 % (0.2-1.0) 08/01/19 05:12 Neut # (Auto) 5.0 x10^3/uL (2.2-4.8) H 08/01/19 05:12 Lymph # (Auto) 2.7 X10^3/uL (1.3-2.9) 08/01/19 05:12 [place] # (Auto) 0.7 x10^3/uL (0.3-0.8) 08/01/19 05:12 Eos # (Auto) 1.5 x10^3/uL (0.0-0.2) H 08/01/19 05:12 Baso # (Auto) 0.0 X10^3/uL (0.0-0.1) 08/01/19 05:12 Absolute Nucleated RBC 0.1 /100WBC 08/01/19 05:12 Sodium 140 mmol/L (136-145) 08/01/19 05:12 Corrected Sodium TNP 08/01/19 05:12 Potassium 4.0 mmol/L (3.5-5.1) 08/01/19 05:12 Chloride 106 mmol/L (98-107) 08/01/19 05:12 Carbon Dioxide 28.5 mmol/L (21-32) 08/01/19 05:12 BUN 9 mg/dL (7-18) 08/01/19 05:12 Creatinine 0.91 mg/dL (0.70-1.30) 08/01/19 05:12 Est GFR (MDRD) Af Amer > 60 (>60) 08/01/19 05:12 Est GFR (MDRD) Non-Af > 60 (>60) 08/01/19 05:12 Glucose 99 mg/dL (65-99) 08/01/19 05:12 Calcium 8.1 mg/dL (8.5-10.1) L 08/01/19 05:12 Corrected Calcium 9.1 mg/dL (8.5-10.1) 08/01/19 05:12 Total Bilirubin 0.50 mg/dL (0.2-1.0) 08/01/19 05:12 AST 44 Units/L (15-37) H 08/01/19 05:12 ALT 200 Units/L (12-78) H 08/01/19 05:12 Alkaline Phosphatase 120 Units/L (46-116) H 08/01/19 05:12 Creatine Kinase 68 Units/L (39-308) 07/30/19 19:36 CK-MB (CK-2) 1.4 ng/mL (0-4.0) 07/30/19 19:36 CK/CKMB % Calc 2.1 % (<4) 07/30/19 19:36 Troponin I < 0.02 ng/mL (0-1.5) 07/30/19 19:36 Total Protein 5.9 g/dL (6.4-8.2) L 08/01/19 05:12 Albumin 2.8 g/dL (3.4-5.0) L 08/01/19 05:12 Globulin 3.1 g/dL (2.5-4.5) 08/01/19 05:12 Albumin/Globulin Ratio 0.9 Ratio (1.1-2.1) L 08/01/19 05:12 Lipase 211 Units/L (73-393) 07/30/19 19:36 Urine Opiates Screen Negative (NEG=<300) 07/30/19 21:00 Urine Methadone Screen Negative (NEG=<300) 07/30/19 21:00 Ur Barbiturates Screen Negative (NEG=<200) 07/30/19 21:00 Ur Phencyclidine Scrn Negative (NEG=<25) 07/30/19 21:00 Ur Amphetamines Screen Negative (NEG=<1000) 07/30/19 21:00 U Benzodiazepines Scrn Negative (NEG=<200) 04/13/20 21:00 Urine Cocaine Screen Negative (NEG=<300) 07/30/19 21:00 U Marijuana (THC) Screen Positive (NEG=<50) A 07/30/19 21:00 - Assessment and Plan 1: chest and upper abdominal pain . acute cholecystitis with GB sludge . liver dysfunction . GERD with severe heartburn . smoker and Marijuana user. FOR LAP LU . - Problem Patient Problems: Patient Problems Abdominal pain, acute (Acute) R10.9
[2019-08-02] MEDS ORDERED: DILAUDID INJ ONE (10:08)
[2019-08-02] MEDS: NICOTINE PATCH TD SCH (12:37)
[2019-08-02] MEDS: ASPIRIN 81 MG CHEWTAB PO SCH (12:37)
[2019-08-02] MEDS: PROTONIX INJ 40 MG VIAL IVP SCH (12:38)
[2019-08-02 14:34] VITALS: BP 127/76
== END 2019-08-02 14:50 | disposition home or self-care (01) ==
LOC: MED/SURG 18:44 → ER 18:44 → MED/SURG 22:43
PROVIDERS: ADMIT Surgery; ATTEND Surgery
DX: R10.11 Right upper quadrant pain; R94.5 Abnormal results of liver function studies; R07.89 Other chest pain; K21.9 Gastro-esophageal reflux disease without esophagitis; K81.0 Acute cholecystitis; R11.2 Nausea with vomiting, unspecified; K82.8 Other specified diseases of gallbladder; Z72.0 Tobacco use; I10 Essential (primary) hypertension; R10.31 Right lower quadrant pain; F12.90 Cannabis use, unspecified, uncomplicated